=== PATIENT | male | born 2000 | race American Indian/Alaskan Native ===

== ENCOUNTER 2018-06-20 22:36 | Emergency (ER) | payer SELFPAY ==
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
[2018-06-21 01:31] LABS: Alanine Aminotransferase 13 units/L (7-56); Albumin 3.9 g/dL (3.9-5); BUN/Creatinine Ratio 10; Blood Urea Nitrogen 9 mg/dL (9-20); Calcium 9.6 mg/dL (8.4-10.2); Hemolysis Index 18
[2018-06-21 01:32] LABS: Basophils # (Auto) 0.1 K/mm3 (0.0-0.1); Basophils % (Auto) 1.4 % (0.0-1.8); Eosinophils # (Auto) 0.1 K/mm3 (0.0-0.4); Eosinophils % (Auto) 0.8 % (0.0-4.3); Hematocrit 41.5 % (35.5-45.6); Hemoglobin 13.8 gm/dl (11.8-15.2); Lymphocytes # (Auto) 1.2 K/mm3 (1.2-5.4); Lymphocytes % (Auto) 12.9 % (13.4-35.0); Mean Corpuscular HGB Conc 33 % (32-34); Mean Corpuscular Volume 77 fl (84-94); Monocytes # (Auto) 0.6 K/mm3 (0.0-0.8); Monocytes % (Auto) 7.2 % (0.0-7.3); Platelet Count 341 K/mm3 (140-440); Red Blood Count 5.36 M/mm3 (3.65-5.03); Red Cell Distribution Width 17.1 % (13.2-15.2)
[2018-06-21 04:17] LABS: Bilirubin,Urine NEG (Negative); Blood,Urine NEG (Negative); Color,Urine Yellow (Yellow); Mucus,Urine 1+ /HPF; Protein,Urine <15 mg/dL mg/dL (Negative); Urobilinogen,Urine < 2.0 mg/dL (<2.0)
[2018-06-21 04:27] LABS: Amphetamine Screen,Urine PRESUMPTIVE NEGATIVE; Benzodiazepines Screen,Urine PRESUMPTIVE NEGATIVE; Cannabinoid Screen,Urine PRESUMPTIVE NEGATIVE; Cocaine Screen,Urine PRESUMPTIVE NEGATIVE; Methadone Screen,Urine PRESUMPTIVE NEGATIVE; Opiate Screen,Urine PRESUMPTIVE NEGATIVE
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
--- NOTE | 2018-06-22 18:48 | Progress Note ---
Subjective - Reason for Consult Consult date: 06/22/18 Reason for consult: follow up - Chief Complaint Chief complaint: "voices in my ear" They are whisphering in my ear. "I'm not crazy." Pt is a 17yo single male of Monegas[place] heritage. He was seen for psychiatric evaluation in the ER. Pt was brought to ED by his parents for bizarre behavior, auditory hallucinations, violent/aggressive bx, decreased appetite, and poor ADL's. Per ED provider evaluation, his parents reported picking him up from [facility] on Saturday at which time they noticed him acting bizarre. He insists his parents and roommate were whispering to him and that he is "not crazy." He took zyprexa last night and says he slept a little. He began to escalate with agitation when discussing symptoms. - Exam Orientation: time, place, person Affect: flat Mood: fearful Thought content: delusions, paranoia Thought Process: Disorganized Perceptions: auditory, hallucinations Speech: normal rate and pattern Concentration: distractible Motor activity: normal Level of consciousness: alert Memory: Intact Sleep Symptoms: Difficulty Falling Asleep Appetite: decreased Interaction: cooperative Mini mental status exam(if necessary): 24-30 Mental Status Exam - Vital signs Last Vital Signs Temp 98.5 F 06/22/18 14:15 Pulse 77 06/22/18 14:15 Resp 20 06/22/18 14:15 BP 99/61 06/22/18 14:15 Pulse Ox 97 06/22/18 14:15 Assessment and Plan Impression: psychosis unspecified r/o schizophreniform disorder r/o substance induced psychotic disorder UDS neg Recommendation: continue zyprexa 5mg hs for psychosis risks/benefits discussed, risks including eps/nms/metabolic effects/sedation continue 1013 dispo: transfer to inpatient psychiatric facility staffed with Dr. Elvis Buck
--- NOTE | 2018-06-23 12:24 | Progress Note ---
Subjective - Reason for Consult Consult date: 06/23/18 Reason for consult: Psychiatry Follow-up - Chief Complaint Chief complaint: "I am a little better" 17 yo single male of Citizen Of [place] heritage. Today the patient is calm and cooperative during the assessment. He stated that he is feeling "a little better." He denied experiencing AH's in the past. He stated that he got "good sleep" the past 2 days. He could not elaborate about what happened to him prior to his arrival to the ER. He denies SI/HI's and AVH's. He denies any side effects of his medication. Mental Status Exam - Vital signs Last Vital Signs Temp 98.1 F 06/23/18 07:59 Pulse 76 06/23/18 07:59 Resp 18 06/23/18 07:59 BP 100/62 06/23/18 07:59 Pulse Ox 99 06/23/18 07:59 - Exam Narrative exam: MSE: Appearance: calm, cooperative Behavior: regular eye contact Speech: regular rate and tone Mood: "okay" Affect: congruent to mood Thought Process: circumstantial Thought Content: denies SI/HI's and AVH's Motor Activity: sitting up in the bed Cognition: A/O x 3 Insight: variable to fair Judgment: fair Assessment and Plan Impression: Unspecified Psychosis. Today the patient is calm and cooperative during the assessment. The patient's mental status is improving. DDx: Bipolar DO Recommendation/Plan: Reevaluate the patient's 1013 in 24 hours. Continue Zyprexa 5 mg PO HS for psychosis. Discussed possible metabolic side effects of Zyprexa, she verbalized understanding. Dispo: If the patient's 1013 is rescinded in 24 hours, he can follow up with [facility] for outpatient psy services. Will staff with Dr. Anahi Buck
--- NOTE | 2018-06-23 14:57 | Cat Scan Report ---
CT HEAD WITHOUT CONTRAST: HISTORY: Bizarre behavior. TECHNIQUE: Sequential 2.5mm CT images. COMPARISON: none. FINDINGS: Cerebral Parenchyma: Within normal limits. Cerebellum: Within normal limits. Brainstem: Within normal limits. Ventricles: Normal. Sella: Normal. Extra-axial spaces: Normal. Basal Cisterns: Normal. Intracranial Hemorrhage: None. Midline Shift: None. Calvarium: Normal. Sinuses: Normal. Mastoid Air Cells: Normal. Visualized Orbits: Normal. IMPRESSION: Cranial CT scan within normal limits.
--- NOTE | 2018-06-24 10:31 | Progress Note ---
Subjective - Reason for Consult Consult date: 06/24/18 Reason for consult: Psychiatry Follow-up - Chief Complaint Chief complaint: "I believe the whispers"" 17 yo single male of Maur[place] heritage. Today the patient is calm and cooperative during the assessment. He stated that he does not hear whispers today, but believed what he heard may have been real prior to his ER visit. He stated, "The voices and whispers were weird." Throughout the interview, the patient seem preoccupied. He denies SI/HI's and AVH's. He denies any side effects of his medication. Mental Status Exam - Vital signs Last Vital Signs Temp 98.8 F 06/24/18 04:06 Pulse 79 06/24/18 04:06 Resp 18 06/24/18 04:06 BP 106/67 06/24/18 04:06 Pulse Ox 96 06/24/18 04:06 - Exam Narrative exam: MSE: Appearance: calm, cooperative Behavior: regular eye contact Speech: regular rate and tone Mood: somewhat preoccupied Affect: congruent to mood Thought Process: circumstantial Thought Content: denies SI/HI's and AVH's, delusional Motor Activity: sitting up in the bed Cognition: A/O x 3 Insight: variable Judgment: variable to fair Assessment and Plan Impression: Unspecified Psychosis. Today the patient is calm and cooperative during the assessment. The patient's mental status is improving. DDx: Bipolar DO Recommendation/Plan: Continue 1013 and Zyprexa 5 mg PO HS for psychosis. Discussed possible metabolic side effects of Zyprexa, she verbalized understanding. Dispo: The patient was referred to inpatient psy services. Will staff with Dr. Anahi Buck
[2018-06-25 08:42] VITALS: BP 130/86
== END 2018-06-25 09:00 | disposition admitted as inpatient to this hospital (09) ==
LOC: ED 22:36 → EEVIPCON 22:36 → ED 06-25 09:00
DX: F23 Brief psychotic disorder (principal); F17.200 Nicotine dependence, unspecified, uncomplicated; F12.10 Cannabis abuse, uncomplicated
CPT/HCPCS: 36415; 70450; 80053; 80307; 81001; 84443; 85025; 99285; G0480; 80320

== ENCOUNTER 2020-01-14 16:24 | Emergency (ER) | payer OTHER ==
[2020-01-14 16:31] VITALS: BP 125/73
--- NOTE | 2020-01-14 16:33 | Event Note ---
ED Screening Note Date of service: 01/14/20 Time: 16:32 ED Screening Note: Patient sent here from his health specialist with copies of an MRI yesterday possible neoplasm and a CT that states possible osteomyelitis in the lumbar spine student education specialist recommends infectious disease and neurosurgery consult Patient denies any prior medical history This initial assessment/diagnostic orders/clinical plan/treatment(s) is/are subject to change based on patients health status, clinical progression and re- assessment by fellow clinical providers in the ED. Further treatment and workup at subsequent clinical providers discretion. Patient/guardian urged not to elope from the ED as their condition may be serious if not clinically assessed and managed. Initial orders include: Labs
[2020-01-14 17:28] LABS: Basophils # (Auto) 0.1 K/mm3 (0.0-0.1); Basophils % (Auto) 1.1 % (0.0-1.8); Eosinophils # (Auto) 0.2 K/mm3 (0.0-0.4); Eosinophils % (Auto) 2.5 % (0.0-4.3); Hemoglobin 12.6 gm/dl (11.8-15.2); Lymphocytes # (Auto) 1.3 K/mm3 (1.2-5.4); Lymphocytes % (Auto) 19.9 % (13.4-35.0); Mean Corpuscular HGB Conc 32 % (32-34); Mean Corpuscular Volume 74 fl (84-94); Monocytes # (Auto) 0.4 K/mm3 (0.0-0.8); Monocytes % (Auto) 5.8 % (0.0-7.3); Platelet Count 435 K/mm3 (140-440); Red Blood Count 5.27 M/mm3 (3.65-5.03); Red Cell Distribution Width 18.9 % (13.2-15.2)
[2020-01-14 17:36] LABS: Alanine Aminotransferase 20 units/L (7-56); Albumin 3.9 g/dL (3.9-5); BUN/Creatinine Ratio 11; Blood Urea Nitrogen 9 mg/dL (9-20); Calcium 9.8 mg/dL (8.4-10.2); Hemolysis Index 7
--- NOTE | 2020-01-14 21:06 | Emergency Department Report ---
ED Back Pain/Injury HPI - General Chief Complaint: Back Pain/Injury Stated Complaint: LOW BACK PAIN Time Seen by Provider: 01/14/20 16:31 Source: patient Limitations: No Limitations - History of Present Illness Initial Comments: Patient is a 19-year-old gentleman who has no significant past medical history who is presenting with need for evaluation of lower back pain. The end of November 2019 the patient went to [facility] orthopedics and had an MRI performed. He then had approximately 3 weeks later [address] a [address] of the lumbar spine done as well. Patient is been having low back pain for the past 3 to 4 months. States he has a mild lower leg swelling off and on as well but denies any trauma or any bowel incontinence or urinary retention. States he has had no fevers or chills. The CT showed possibility of osteomyelitis of L3. MRI showed indeterminate neoplastic lesion of the anterior L3 vertebral body extending over a 2.6 cm ovoid long axis cephalocaudal dimension on the sagittal T2 image. There is ill- defined swelling around this area as well. The spinal cord had normal diameter and caliber. There were no other abnormalities found. Patient was given results of these tests today and was told to come immediately to the emergency department. - Related Data Previous Rx's Medication Instructions Recorded Last Taken Type methOCARBAMOL [Robaxin TAB] 500 mg PO Q6H PRN #14 tablet 01/14/20 Unknown Rx predniSONE [Deltasone] 20 mg PO QDAY #5 tab 01/14/20 Unknown Rx traMADoL [Ultram] 50 mg PO Q6HR PRN #12 tablet 01/14/20 Unknown Rx Allergies Allergy/AdvReac Type Severity Reaction Status Date / Time No Known Allergies Allergy Verified 06/21/18 10:03 ED Review of Systems ROS: Stated complaint: LOW BACK PAIN Other details as noted in HPI Comment: All other systems reviewed and negative ED Past Medical Hx - Past Medical History Previous Medical History?: Yes Hx Psychiatric Treatment: No Additional medical history: anemia - Surgical History Past Surgical History?: No - Social History Substance Use Type: Marijuana - Medications Home Medications: Home Medications Medication Instructions Recorded Confirmed Last Taken Type methOCARBAMOL [Robaxin TAB] 500 mg PO Q6H PRN #14 tablet 01/14/20 Unknown Rx predniSONE [Deltasone] 20 mg PO QDAY #5 tab 01/14/20 Unknown Rx traMADoL [Ultram] 50 mg PO Q6HR PRN #12 tablet 01/14/20 Unknown Rx ED Physical Exam - General Limitations: No Limitations General appearance: alert, in no apparent distress - Head Head exam: Present: atraumatic, normocephalic - Eye Eye exam: Present: normal appearance - ENT ENT exam: Present: mucous membranes moist - Neck Neck exam: Present: normal inspection - Respiratory Respiratory exam: Present: normal lung sounds bilaterally. Absent: respiratory distress, wheezes, rales, rhonchi - Cardiovascular Cardiovascular Exam: Present: regular rate, normal rhythm, normal heart sounds. Absent: systolic murmur, diastolic murmur, rubs, gallop - GI/Abdominal GI/Abdominal exam: Present: soft, normal bowel sounds. Absent: distended, tenderness, guarding, rebound - Rectal Rectal exam: Present: deferred - Extremities Exam Extremities exam: Present: normal inspection - Back Exam Back exam: Present: normal inspection, full ROM. Absent: tenderness - Neurological Exam Neurological exam: Present: alert, oriented X3 - Psychiatric Psychiatric exam: Present: normal affect, normal mood - Skin Skin exam: Present: warm, dry, intact, normal color. Absent: rash ED Course Vital Signs 01/14/20 16:26 Temperature 98.8 F Pulse Rate 105 H Respiratory 16 Rate Blood Pressure 125/73 [Right] O2 Sat by Pulse 98 Oximetry ED Medical Decision Making - Lab Data Result diagrams: 01/14/20 17:03 01/14/20 17:03 - Medical Decision Making Regarding the CT showing a possible osteomyelitis do believe that the MRI likely is showing the exact same lesion but because the MRI is showing more details this is more likely some type of neoplastic or tumorWas at medical alcohol consultIs unknown whether this is benign or malignant at this time. Do not believe that the patient is an emergent need of infectious disease consult from emergency department. He is afebrile and white count was normal. Patient will be given follow-up with [facility] for further management of his lower back pain. Patient will be given medication for symptomatic relief as he is not on anything for pain will be discharged home. Critical care attestation.: If time is entered above; I have spent that time in minutes in the direct care of this critically ill patient, excluding procedure time. ED Disposition Clinical Impression: Lumbar back pain, Neoplasm of lumbar vertebra Disposition: - TO HOME OR SELFCARE Is pt being admited?: No Does the pt Need Aspirin: No Condition: Stable Referrals: KENNEDI YANG II, MD [Staff Physician] - 3-5 Days Time of Disposition: 21:08
== END 2020-01-14 21:40 | disposition home or self-care (01) ==
LOC: ED 16:24
DX: M54.5 Low back pain (principal); D49.2 Neoplasm of unspecified behavior of bone, soft tissue, and skin; F12.10 Cannabis abuse, uncomplicated
CPT/HCPCS: 36415; 80053; 82140; 85025; 87040; 99283

== ENCOUNTER 2020-03-10 11:56 | Outpatient (CLI) | payer OTHER ==
--- NOTE | 2020-03-10 13:22 | XRay Report ---
BILATERAL HIPS 4 VIEWS INDICATION / CLINICAL INFORMATION: HIP PAIN. COMPARISON: None available. FINDINGS: Moderate degenerative change in the right hip joint with mild degenerative change on the left. No oth er significant skeletal abnormality Signer Name: Gonzalo Rico MD FACR Signed: 03/10/2020 1:18 PM Workstation Name: [id number]
== END 2020-03-10 11:57 | disposition home or self-care (01) ==
LOC: XRAY 11:56
PROVIDERS: ATTEND Orthopaedic Surgery
DX: M16.0 Bilateral primary osteoarthritis of hip (principal)
CPT/HCPCS: 73521

== ENCOUNTER 2020-04-17 22:19 | Inpatient (IN) | payer OTHER ==
[2020-04-17 23:39] LABS: Basophils # (Auto) 0.1 K/mm3 (0.0-0.1); Basophils % (Auto) 0.7 % (0.0-1.8); Eosinophils # (Auto) 0.3 K/mm3 (0.0-0.4); Hematocrit 37.7 % (35.5-45.6); Hemoglobin 12.3 gm/dl (11.8-15.2); Lymphocytes % (Auto) 13.1 % (13.4-35.0); Mean Corpuscular HGB Conc 33 % (32-34); Mean Corpuscular Volume 72 fl (84-94); Monocytes # (Auto) 0.6 K/mm3 (0.0-0.8); Monocytes % (Auto) 3.8 % (0.0-7.3); Platelet Count 456 K/mm3 (140-440); Red Blood Count 5.24 M/mm3 (3.65-5.03); Red Cell Distribution Width 18.5 % (13.2-15.2)
[2020-04-17 23:56] LABS: Alanine Aminotransferase 24 units/L (7-56); Albumin 4.5 g/dL (3.9-5); Blood Urea Nitrogen 9 mg/dL (9-20); Calcium 9.8 mg/dL (8.4-10.2); Hemolysis Index 0
[2020-04-18 00:09] LABS: BUN/Creatinine Ratio 13
[2020-04-18] MEDS ORDERED: ONDANSETRON 4 MG ODT TAB PO ONE (00:44)
--- NOTE | 2020-04-18 00:48 | Event Note ---
ED Screening Note Date of service: 04/18/20 Time: 00:44 ED Screening Note: Pt c/o mid/upper abdominal pain and vomiting x yesterday denies alcohol or marijuana This initial assessment/diagnostic orders/clinical plan/treatment(s) is/are subject to change based on patients health status, clinical progression and re- assessment by fellow clinical providers in the ED. Further treatment and workup at subsequent clinical providers discretion. Patient/guardian urged not to elope from the ED as their condition may be serious if not clinically assessed and managed. Initial orders include: labs CT
[2020-04-18 01:52] LABS: Bilirubin,Urine NEG (Negative); Blood,Urine NEG (Negative); Color,Urine Yellow (Yellow); Mucus,Urine FEW /HPF; RBC,Urine < 1.0 /HPF (0.0-6.0); Urobilinogen,Urine < 2.0 mg/dL (<2.0)
[2020-04-18] MEDS ORDERED: METOCLOPRAMIDE 10 MG/2 ML INJ IV ONE (02:17)
[2020-04-18] MEDS ORDERED: MORPHINE 4 MG/1 ML INJ IV ONE ×2 (02:17→05:27)
[2020-04-18] MEDS ORDERED: diphenhydrAMINE 50 MG/ML VIAL IV ONE (02:17)
[2020-04-18] MEDS ORDERED: FAMOTIDINE 20 MG/2 ML INJ IV ONE (02:17)
[2020-04-18] MEDS ORDERED: SODIUM CHLORIDE 0.9% 1000 ML 1,000 ML IV ONE ×2 (02:17→05:42)
--- NOTE | 2020-04-18 04:30 | Cat Scan Report ---
CT abdomen pelvis w con INDICATION: acute mid/upper abdominal pain and vomiting. TECHNIQUE: All CT scans at this location are performed using the following dose modulation technique: Automated exposure control. CONTRAST: Omnipaque 300, 100 cc IV injection. COMPARISON: None available. CT ABDOMEN: Chronic appearing inflammatory change right middle lobe. CT ABDOMEN: The parenchymal organs are unremarkable in appearance. Negative for abdominal mass or francia nopathy. Moderate distended small bowel is seen at the mid abdomen. The mid/distal small bowel is dec ompressed. Erosion is seen at the anterior aspect of the L3 vertebral body greater on the left. A sequestered betty ne fragment measures 1.4 cm. There is an adjacent fluid collection at the left psoas muscle measuring 4.2 x 2[address] PELVIS: Negative for pelvic mass, fluid collection or inflammation. IMPRESSION: 1. Mid small bowel obstruction. 2. Suspect chronic osteomyelitis at the L3 vertebral body with adjacent left psoas abscess. Signer Name: Aly Briones MD Signed: 04/18/2020 4:26 AM Workstation Name: [id number]
--- NOTE | 2020-04-18 05:29 | Emergency Department Report ---
<GAYLA FOSTER - Last Filed: 04/18/20 05:25> ED Abdominal Pain HPI - General Chief Complaint: Abdominal Pain Stated Complaint: EMESIS/ABD PAIN Time Seen by Provider: 04/18/20 02:17 Source: patient Mode of arrival: Ambulatory Limitations: No Limitations - History of Present Illness Initial Comments: 19-year-old -French male patient presents with complaints of sudden onset of abdominal pain and vomiting starting yesterday. Patient denies alcohol and marijuana. He also denies any fever/chills/sweats, hematemesis/coffee- ground emesis, diarrhea, melena/hematochezia, urinary symptoms, chest pain, or shortness of breath. Patient rates his current pain as a 9/10 in severity. No history of abdominal surgeries per patient. Vomiting occurs with oral intake only per patient. Severity scale (0 -10): 10 - Related Data Previous Rx's Medication Instructions Recorded Last Taken Type methOCARBAMOL [Robaxin TAB] 500 mg PO Q6H PRN #14 tablet 01/14/20 Unknown Rx predniSONE [Deltasone] 20 mg PO QDAY #5 tab 01/14/20 Unknown Rx traMADoL [Ultram] 50 mg PO Q6HR PRN #12 tablet 01/14/20 Unknown Rx Allergies Allergy/AdvReac Type Severity Reaction Status Date / Time No Known Allergies Allergy Verified 06/21/18 10:03 ED Review of Systems Constitutional: denies: chills, fever, malaise Respiratory: denies: cough, shortness of breath Cardiovascular: denies: chest pain Gastrointestinal: abdominal pain, nausea, vomiting. denies: diarrhea, constipation, hematemesis, melena, hematochezia Genitourinary: denies: dysuria, frequency, hematuria, discharge Musculoskeletal: denies: back pain Skin: denies: rash, change in color Neurological: denies: headache Hematological/Lymphatic: denies: easy bleeding ED Past Medical Hx - Past Medical History Previous Medical History?: Yes Hx Psychiatric Treatment: No Additional medical history: anemia - Surgical History Past Surgical History?: Yes - Social History Smoking Status: Never Smoker Substance Use Type: None - Medications Home Medications: Home Medications Medication Instructions Recorded Confirmed Last Taken Type methOCARBAMOL [Robaxin TAB] 500 mg PO Q6H PRN #14 tablet 01/14/20 Unknown Rx predniSONE [Deltasone] 20 mg PO QDAY #5 tab 01/14/20 Unknown Rx traMADoL [Ultram] 50 mg PO Q6HR PRN #12 tablet 01/14/20 Unknown Rx ED Physical Exam - General Limitations: No Limitations General appearance: alert, other (Actively vomiting) - Head Head exam: Present: atraumatic, normocephalic - Eye Eye exam: Present: normal appearance. Absent: scleral icterus - ENT ENT exam: Present: normal exam - Neck Neck exam: Present: normal inspection - Respiratory Respiratory exam: Present: normal lung sounds bilaterally. Absent: respiratory distress - Cardiovascular Cardiovascular Exam: Present: regular rate, normal rhythm - GI/Abdominal GI/Abdominal exam: Present: soft, distended (Mild), tenderness (Periumbilical and epigastric), hyperactive bowel sounds. Absent: rigid, organomegaly - Extremities Exam Extremities exam: Present: normal inspection - Back Exam Back exam: Present: full ROM - Neurological Exam Neurological exam: Present: alert, oriented X3 - Psychiatric Psychiatric exam: Present: normal affect, normal mood - Skin Skin exam: Present: warm, dry, intact, normal color. Absent: rash, diaphoretic, erythema, ecchymosis ED Medical Decision Making - Lab Data Result diagrams: 04/17/20 23:08 04/17/20 23:08 Lab Results 04/17/20 04/17/20 04/18/20 Range/Units 23:08 23:08 00:40 WBC 15.3 H (4.5-11.0) K/mm3 RBC 5.24 H (3.65-5.03) M/mm3 Hgb 12.3 (11.8-15.2) gm/dl Hct 37.7 (35.5-45.6) % MCV 72 L (84-94) fl MCH 24 L (28-32) pg MCHC 33 (32-34) % RDW 18.5 H (13.2-15.2) % Plt Count 456 H (140-440) K/mm3 Lymph % (Auto) 13.1 L (13.4-35.0) % [place] % (Auto) 3.8 (0.0-7.3) % Eos % (Auto) 2.0 (0.0-4.3) % Baso % (Auto) 0.7 (0.0-1.8) % Lymph # (Auto) 2.0 (1.2-5.4) K/mm3 [place] # (Auto) 0.6 (0.0-0.8) K/mm3 Eos # (Auto) 0.3 (0.0-0.4) K/mm3 Baso # (Auto) 0.1 (0.0-0.1) K/mm3 Seg Neutrophils % 80.4 H (40.0-70.0) % Seg Neutrophils # 12.3 H (1.8-7.7) K/mm3 Sodium 139 (137-145) mmol/L Potassium 4.2 (3.6-5.0) mmol/L Chloride 96.7 L (98-107) mmol/L Carbon Dioxide 32 H (22-30) mmol/L Anion Gap 15 mmol/L BUN 9 (9-20) mg/dL Creatinine 0.7 L (0.8-1.3) mg/dL Estimated GFR > 60 ml/min BUN/Creatinine Ratio 13 % Glucose 166 H (75-100) mg/dL Calcium 9.8 (8.4-10.2) mg/dL Total Bilirubin 0.20 (0.1-1.2) mg/dL AST 24 (5-40) units/L ALT 24 (7-56) units/L Alkaline Phosphatase 90 (35-129) units/L Total Protein 8.1 (6.3-8.2) g/dL Albumin 4.5 (3.9-5) g/dL Albumin/Globulin Ratio 1.3 % Lipase 9 L (13-60) units/L Urine Color Yellow (Yellow) Urine Turbidity Slightly-cloudy (Clear) Urine pH 5.0 (5.0-7.0) Ur Specific [place] 1.017 (1.003-1.030) Urine Protein 30 mg/dl (Negative) mg/dL Urine Glucose (UA) Neg (Negative) mg/dL Urine Ketones 20 (Negative) mg/dL Urine Blood Neg (Negative) Urine Nitrite Neg (Negative) Urine Bilirubin Neg (Negative) Urine Urobilinogen < 2.0 (<2.0) mg/dL Ur Leukocyte Esterase Neg (Negative) Urine WBC (Auto) 2.0 (0.0-6.0) /HPF Urine RBC (Auto) < 1.0 (0.0-6.0) /HPF U Epithel Cells (Auto) < 1.0 (0-13.0) /HPF Urine Mucus Few /HPF - Radiology Data Radiology results: report reviewed CT ABDOMEN: Chronic appearing inflammatory change right middle lobe. CT ABDOMEN: The parenchymal organs are unremarkable in appearance. Negative for abdominal mass or adenopathy. Moderate distended small bowel is seen at the mid abdomen. The mid/distal small bowel is decompressed. Erosion is seen at the anterior aspect of the L3 vertebral body greater on the left. A sequestered bone fragment measures 1.4 cm. There is an adjacent fluid collection at the left psoas muscle measuring 4.2 x 2[address] PELVIS: Negative for pelvic mass, fluid collection or inflammation. IMPRESSION: 1. Mid small bowel obstruction. 2. Suspect chronic osteomyelitis at the L3 vertebral body with adjacent left psoas abscess. - Medical Decision Making 19-year-old -French male patient presents with complaints of sudden onset of abdominal pain and vomiting starting yesterday. Patient denies alcohol and marijuana. He also denies any fever/chills/sweats, hematemesis/coffee- ground emesis, diarrhea, melena/hematochezia, urinary symptoms, chest pain, or shortness of breath. Patient rates his current pain as a 9/10 in severity. No history of abdominal surgeries per patient. Vomiting occurs with oral intake only per patient. CBC shows white count of 15.3. Anion gap 15. No acute changes noted on CMP. Lipase is normal. Abdomen with contrast shows the followin. Mid small bowel obstruction. 2. Suspect chronic osteomyelitis at the L3 vertebral body with adjacent left psoas abscess. Upon further questioning, patient states since October 2019, he has had back pain since being in an accident. He reports he was seen by his PCP who referred him to infectious disease last week who then referred him to [place] for a biopsy on last week. He denies any back pain today. No prior medical history per patient. Discussed patient with Dr. Cazares-patient to be admitted to general surgery, Dr. Law. Currently awaiting records from [place]. Patient is currently nontoxic-appearing and his vitals are stable. ED Disposition Clinical Impression: Small bowel obstruction, Psoas abscess, left, Chronic osteomyelitis Disposition: OP ADMIT IP TO THIS HOSP Condition: Stable <CHRISTIE CAZARES - Last Filed: 04/18/20 05:38> ED Review of Systems ROS: Stated complaint: EMESIS/ABD PAIN Other details as noted in HPI ED Course Vital Signs 04/17/20 23:07 Temperature 98.8 F Pulse Rate 102 H Respiratory 16 Rate Blood Pressure 137/79 O2 Sat by Pulse 99 Oximetry ED Medical Decision Making - Lab Data Result diagrams: 04/17/20 23:08 04/17/20 23:08 - Medical Decision Making Patient will be admitted to the hospital service with consultation by Dr. Lazcano from presentation appears that psoas abscess has been evaluated in the outpatient setting through [facility]. I spoke with transfer nurse at [facility] and [facility] in order to obtain outside records. I also spoke with medical records sales representative [employer] in order to obtain medical records. Patient will be treated with NGT. Critical care attestation.: If time is entered above; I have spent that time in minutes in the direct care of this critically ill patient, excluding procedure time. ED Disposition Is pt being admited?: Yes Does the pt Need Aspirin: No
[2020-04-18] MEDS ORDERED: PIPERACIL/TAZOBACTA 4.5/NS 100 4.5 GM/100 ML VIAL IV ONE (05:55)
[2020-04-18] MEDS ORDERED: VANCOMYCIN/NS 1 GM/250 ML 1 GM/250 ML BAG IV ONE (06:00)
[2020-04-18] MEDS ORDERED: MORPHINE 4 MG/1 ML INJ IV PRN (07:33)
--- NOTE | 2020-04-18 07:41 | History and Physical Report ---
History of Present Illness Date of examination: 04/18/20 Date of admission: 04/18/20 05:38 Chief complaint: Abdominal pain History of present illness: Patient is 19-year-old -Malagasy male patient presents with complaints of sudden onset of abdominal pain and vomiting starting yesterday. While he denies any past medical history he did report that he had some type of biopsy done yesterday in outpatient setting for an infection on his back. From information obtained from the ER this appears to have been done at [facility]. Patient denies alcohol and marijuana. He also denies any fever/chills/sweats, hematemesis/coffee-ground emesis, diarrhea, melena/hematochezia, urinary symptoms, chest pain, or shortness of breath. Vick hitchcock rates his current pain as a 9/10 in severity. No history of abdominal surgeries per patient. Vomiting occurs with oral intake only per patient. On arrival to the hospital he was noted on imaging study to have chronic osteomyelitis of the L3 vertebral body adjacent to the left psoas abscess and also mid small bowel obstruction for which she has been admitted. At the time of my evaluation also the patient has an NG tube already in place reports some improvement in the abdominal pain at this time. Past History Past Medical History: other (Abscess of the back) Past Surgical History: Other (Biopsy of abscess) Social history: no significant social history Family history: diabetes (Mother) Medications and Allergies Allergies Allergy/AdvReac Type Severity Reaction Status Date / Time No Known Allergies Allergy Verified 06/21/18 10:03 Home Medications Medication Instructions Recorded Confirmed Last Taken Type methOCARBAMOL [Robaxin TAB] 500 mg PO Q6H PRN #14 tablet 01/14/20 Unknown Rx predniSONE [Deltasone] 20 mg PO QDAY #5 tab 01/14/20 Unknown Rx traMADoL [Ultram] 50 mg PO Q6HR PRN #12 tablet 01/14/20 Unknown Rx Review of Systems All systems: negative Constitutional: no weight loss, no weight gain, no fever, no chills, no sweats Ears, nose, mouth and throat: no tinnitis, no nasal discharge, no sinus pressure, no mouth pain Cardiovascular: no orthopnea, no edema, no lightheadedness, no paroxysmal nocturnal dyspnea Gastrointestinal: abdominal pain, nausea, vomiting, no diarrhea, no constipation, no change in bowel habits, no hematemesis, no coffee ground emesis, no melena, no loss of appetite, no early satiety Genitourinary Male: no hematuria, no discharge, no urinary hesitancy Musculoskeletal: no neck pain, no low back pain, no muscle weakness, no muscle cramps, no atrophy, no limitation of motion, no loss of height, no prior amputations Integumentary: no rash, no lesions, no darkening of skin, no dryness, no brittle nails, no onychomycosis Neurological: no paralysis, no weakness, no seizures, no syncope, no tic, no change in mentation, no double vision Psychiatric: no memory loss, no hypersomnia, no suicidal ideation, no disorientation, no difficulties concentrating, no irritability Endocrine: no excessive thirst, no polydipsia, no excessive sweating, no thyroid mass, no fatigue Hematologic/Lymphatic: no easy bruising Allergic/Immunologic: no urticaria, no wheezing, no anaphylaxis Exam - Physical Exam Narrative exam: VITAL SIGNS: Reviewed. GENERAL: The patient appears normally developed, NG tube in place. Vital signs as documented. HEAD: No signs of head trauma. EYES: Pupils are equal. Extraocular motions intact. EARS: Hearing grossly intact. MOUTH: Oropharynx is normal. NECK: No adenopathy, no JVD. CHEST: Chest with clear breath sounds bilaterally. No wheezes, rales, or rhonchi. CARDIAC: Regular rate and rhythm. S1 and S2, without murmurs, gallops, or rubs. VASCULAR: No Edema. Peripheral pulses normal and equal in all extremities. ABDOMEN: Soft, nondistended nontender . No rebound or guarding, and no masses palpated. Bowel Sounds normal. MUSCULOSKELETAL: Good range of motion of all major joints. Extremities without clubbing, cyanosis or edema. NEUROLOGIC EXAM: Alert and oriented x 3 No focal sensory or strength deficits. Speech normal. Follows commands. PSYCHIATRIC: Mood normal. SKIN: detail exam as documented in skin assessment - Constitutional Vitals: Temp Pulse Resp BP Pulse Ox 98.8 F 110 H 20 127/80 98 04/17/20 23:07 04/18/20 06:15 04/18/20 06:15 04/18/20 06:15 04/18/20 06:15 Results - Labs CBC & Chem 7: 04/17/20 23:08 04/17/20 23:08 Labs: Laboratory Last Values WBC 15.3 K/mm3 (4.5-11.0) H 04/17/20 23:08 RBC 5.24 M/mm3 (3.65-5.03) H 04/17/20 23:08 Hgb 12.3 gm/dl (11.8-15.2) 04/17/20 23:08 Hct 37.7 % (35.5-45.6) 04/17/20 23:08 MCV 72 fl (84-94) L 04/17/20 23:08 MCH 24 pg (28-32) L 04/17/20 23:08 MCHC 33 % (32-34) 04/17/20 23:08 RDW 18.5 % (13.2-15.2) H 04/17/20 23:08 Plt Count 456 K/mm3 (140-440) H 04/17/20 23:08 Lymph % (Auto) 13.1 % (13.4-35.0) L 04/17/20 23:08 [place] % (Auto) 3.8 % (0.0-7.3) 04/17/20 23:08 Eos % (Auto) 2.0 % (0.0-4.3) 04/17/20 23:08 Baso % (Auto) 0.7 % (0.0-1.8) 04/17/20 23:08 Lymph # (Auto) 2.0 K/mm3 (1.2-5.4) 04/17/20 23:08 [place] # (Auto) 0.6 K/mm3 (0.0-0.8) 04/17/20 23:08 Eos # (Auto) 0.3 K/mm3 (0.0-0.4) 04/17/20 23:08 Baso # (Auto) 0.1 K/mm3 (0.0-0.1) 04/17/20 23:08 Seg Neutrophils % 80.4 % (40.0-70.0) H 04/17/20 23:08 Seg Neutrophils # 12.3 K/mm3 (1.8-7.7) H 04/17/20 23:08 Sodium 139 mmol/L (137-145) 04/17/20 23:08 Potassium 4.2 mmol/L (3.6-5.0) 04/17/20 23:08 Chloride 96.7 mmol/L (98-107) L 04/17/20 23:08 Carbon Dioxide 32 mmol/L (22-30) H 04/17/20 23:08 Anion Gap 15 mmol/L 04/17/20 23:08 BUN 9 mg/dL (9-20) 04/17/20 23:08 Creatinine 0.7 mg/dL (0.8-1.3) L 04/17/20 23:08 Estimated GFR > 60 ml/min 04/17/20 23:08 BUN/Creatinine Ratio 13 % 04/17/20 23:08 Glucose 166 mg/dL (75-100) H 04/17/20 23:08 Lactic Acid 2.00 mmol/L (0.7-2.0) 04/18/20 05:40 Calcium 9.8 mg/dL (8.4-10.2) 04/17/20 23:08 Total Bilirubin 0.20 mg/dL (0.1-1.2) 04/17/20 23:08 AST 24 units/L (5-40) 04/17/20 23:08 ALT 24 units/L (7-56) 04/17/20 23:08 Alkaline Phosphatase 90 units/L (35-129) 04/17/20 23:08 Total Protein 8.1 g/dL (6.3-8.2) 04/17/20 23:08 Albumin 4.5 g/dL (3.9-5) 04/17/20 23:08 Albumin/Globulin Ratio 1.3 % 04/17/20 23:08 Lipase 9 units/L (13-60) L 04/17/20 23:08 Urine Color Yellow (Yellow) 04/18/20 00:40 Urine Turbidity Slightly-cloudy (Clear) 04/18/20 00:40 Urine pH 5.0 (5.0-7.0) 04/18/20 00:40 Ur Specific [place] 1.017 (1.003-1.030) 04/18/20 00:40 Urine Protein 30 mg/dl mg/dL (Negative) 04/18/20 00:40 Urine Glucose (UA) Neg mg/dL (Negative) 04/18/20 00:40 Urine Ketones 20 mg/dL (Negative) 04/18/20 00:40 Urine Blood Neg (Negative) 04/18/20 00:40 Urine Nitrite Neg (Negative) 04/18/20 00:40 Urine Bilirubin Neg (Negative) 04/18/20 00:40 Urine Urobilinogen < 2.0 mg/dL (<2.0) 04/18/20 00:40 Ur Leukocyte Esterase Neg (Negative) 04/18/20 00:40 Urine WBC (Auto) 2.0 /HPF (0.0-6.0) 04/18/20 00:40 Urine RBC (Auto) < 1.0 /HPF (0.0-6.0) 04/18/20 00:40 U Epithel Cells (Auto) < 1.0 /HPF (0-13.0) 04/18/20 00:40 Urine Mucus Few /HPF 04/18/20 00:40 Assessment and Plan Assessment and plan: Patient is 19-year-old -Malagasy male patient presents with complaints of sudden onset of abdominal pain and vomiting starting yesterday. While he denies any past medical history he did report that he had some type of biopsy done yesterday in outpatient setting for an infection on his back. From information obtained from the ER this appears to have been done at [facility]. Patient denies alcohol and marijuana. He also denies any fever/chills/sweats, hematemesis/coffee-ground emesis, diarrhea, melena/hematochezia, urinary symptoms, chest pain, or shortness of breath. Patient rates his current pain as a 9/10 in severity. No history of abdominal surgeries per patient. Vomiting occurs with oral intake only per patient. On arrival to the hospital he was noted on imaging study to have chronic osteomyelitis of the L3 vertebral body adjacent to the left psoas abscess and also mid small bowel obstruction for which she has been admitted. At the time of my evaluation also the patient has an NG tube already in place reports some improvement in the abdominal pain at this time. PER ED information: Upon further questioning, patient states since October 2019, he has had back pain since being in an accident. He reports he was seen by his PCP who referred him to infectious disease last week who then referred him to [place] for a biopsy on last week. He denies any back pain today. No prior medical history per patient. CBC shows white count of 15.3. Anion gap 15. No acute changes noted on CMP. Lipase is normal. CT ABDOMEN: Chronic appearing inflammatory change right middle lobe. CT ABDOMEN: The parenchymal organs are unremarkable in appearance. Negative for abdominal mass or adenopathy. Moderate distended small bowel is seen at the mid abdomen. The mid/distal small bowel is decompressed. Erosion is seen at the anterior aspect of the L3 vertebral body greater on the left. A sequestered bone fragment measures 1.4 cm. There is an adjacent fluid collection at the left psoas muscle measuring 4.2 x 2.[address] PELVIS: Negative for pelvic mass, fluid collection or inflammation. IMPRESSION: 1. Mid small bowel obstruction. 2. Suspect chronic osteomyelitis at the L3 vertebral body with adjacent left psoas abscess. A/P Small bowel obstruction, Psoas abscess, left, Chronic osteomyelitis of L3 Sepsis Secondary to abscess Plan Admit to inpatient for further management SBO management with NGT ID consult and continue abx Judicious use of opioids. ED discussed with Dr. Lazcano from presentation appears that Psoas abscess has been evaluated in the outpatient setting through [facility]. Awaiting records [facility] and [facility] in order to obtain outside records. DVT/GI prophy Advance Directives: Yes Plan of care discussed with patient/family: Yes
[2020-04-18] MEDS ORDERED: ALBUTEROL 2.5 MG/3 ML NEBU IH PRN (08:00)
[2020-04-18] MEDS ORDERED: NALOXONE 0.4 MG/1 ML INJ IV PRN (08:00)
[2020-04-18] MEDS ORDERED: ONDANSETRON 4 MG/2 ML INJ IV PRN (08:00)
[2020-04-18] MEDS ORDERED: DEXTROSE 50% IN WATER (25GM) 50 ML SYRINGE IV PRN (08:00)
--- NOTE | 2020-04-18 09:48 | XRay Report ---
ABDOMEN 1 VIEW(S) INDICATION / CLINICAL INFORMATION: Small bowel obstruction. COMPARISON: CT earlier today. FINDINGS: TUBES / LINES: Gastric tube tip and side-port are in the stomach. BOWEL GAS PATTERN: Diffuse small bowel dilatation is noted. Stomach is also dilated. FREE AIR / EXTRALUMINAL GAS: None seen. ADDITIONAL FINDINGS: No significant additional findings. IMPRESSION: 1. Gastric tube in expected position. 2. Small bowel obstruction, as seen on the CT from earlier today. Signer Name: Joey Middleton MD Signed: 04/18/2020 9:43 AM Workstation Name: [id number]
[2020-04-18 10:09] LABS: Chol/HDL Ratio 1.85 %
--- NOTE | 2020-04-18 12:52 | Consultation ---
History of Present Illness Consult date: 04/18/20 Reason for consult: abdominal pain Chief complaint: Abdominal pain - History of present illness History of present illness: 19-year-old male who presented to the emergency room with complaints of acute on set abdominal pain and nausea. Patient cannot characterize his pain or localize it. He states he has never had pain like this before. He states today the pain is slightly improved. He is hungry and wants to eat. He denies nausea or vomiting. An NG tube was placed in the emergency room for CT scan findings of a small bowel obstruction. Surgery is consulted for evaluation. Last bowel movement was 2 days ago. He denies flatus. Of note, the patient is being treated by [place] as an outpatient for vertebral osteomyelitis which was also seen on the CT scan. He apparently underwent a bone biopsy last , the results of which are still pending. He was also referred to infectious disease but states he was not started on antibiotics as they were waiting for results of the biopsy first. He denies any fevers or chills, chest pain, shortness of breath. He denies back pain. Past History Past Medical History: other (Psoas abscess, vertebral osteo-) Past Surgical History: Other (Lumbar vertebral bone biopsy) Social history: no significant social history Family history: diabetes (Mother) Medications and Allergies Allergies Allergy/AdvReac Type Severity Reaction Status Date / Time No Known Allergies Allergy Verified 06/21/18 10:03 Home Medications Medication Instructions Recorded Confirmed Last Taken Type methOCARBAMOL [Robaxin TAB] 500 mg PO Q6H PRN #14 tablet 01/14/20 Unknown Rx predniSONE [Deltasone] 20 mg PO QDAY #5 tab 01/14/20 Unknown Rx traMADoL [Ultram] 50 mg PO Q6HR PRN #12 tablet 01/14/20 Unknown Rx Active Meds: Active Medications Acetaminophen (Acetaminophen 325 Mg Tab) 650 mg PO Q4H PRN PRN Reason: Pain MILD(1-3)/Fever >100.5/MANZANARES Albuterol (Albuterol 2.5 Mg/3 Ml Nebu) 2.5 mg IH Q4HRT PRN PRN Reason: Shortness Of Breath Bisacodyl (Bisacodyl 10 Mg Rect Supp) 10 mg HI QDAY ALFONSO Dextrose (Dextrose 50% In Water (25gm) 50 Ml Syringe) 50 ml IV Q30MIN PRN; Protocol PRN Reason: Hypoglycemia Morphine Sulfate (Morphine 2 Mg/1 Ml Inj) 2 mg IV Q4H PRN PRN Reason: Pain , Severe (7-10) Naloxone HCl (Naloxone 0.4 Mg/1 Ml Inj) 0.1 mg IV Q2MIN PRN PRN Reason: Res Rate </= 8 or 02 SAT < 92% Ondansetron HCl (Ondansetron 4 Mg/2 Ml Inj) 4 mg IV Q4H PRN PRN Reason: Nausea And Vomiting Sodium Chloride (Sodium Chloride 0.9% 10 Ml Flush Syringe) 10 ml IV BID ALFONSO Sodium Chloride (Sodium Chloride 0.9% 10 Ml Flush Syringe) 10 ml IV PRN PRN PRN Reason: LINE FLUSH Review of Systems All systems: negative (10 point ROS performed and negative except for that listed in HPI) Exam Vital Signs Temp Pulse Resp BP Pulse Ox 98.8 F 102 H 16 137/79 99 04/17/20 23:07 04/17/20 23:07 04/17/20 23:07 04/17/20 23:07 04/17/20 23:07 Narrative exam: Gen.: Awake, alert, oriented 3. No apparent distress ENT: Trachea midline. NG tube in place with bilious output. No lymphadenopathy. No scleral icterus or conjunctival pallor CV: S1, S2 present Respiratory: No audible wheezes Abdomen: Soft, mildly distended, nontender. No rebound, rigidity, guarding Extremities: No clubbing, cyanosis, edema Back: Left lower back dressing clean, dry, intact Results - Labs 04/17/20 23:08 04/17/20 23:08 Abnormal lab results 04/17/20 04/17/20 04/18/20 Range/Units 23:08 23:08 09:10 WBC 15.3 H (4.5-11.0) K/mm3 RBC 5.24 H (3.65-5.03) M/mm3 MCV 72 L (84-94) fl MCH 24 L (28-32) pg RDW 18.5 H (13.2-15.2) % Plt Count 456 H (140-440) K/mm3 Lymph % (Auto) 13.1 L (13.4-35.0) % Seg Neutrophils % 80.4 H (40.0-70.0) % Seg Neutrophils # 12.3 H (1.8-7.7) K/mm3 Chloride 96.7 L (98-107) mmol/L Carbon Dioxide 32 H (22-30) mmol/L Creatinine 0.7 L (0.8-1.3) mg/dL Glucose 166 H (75-100) mg/dL LDL Cholesterol Direct 38 L (50-130) mg/dL Lipase 9 L (13-60) units/L Diabetes panel 04/17/20 04/18/20 04/18/20 Range/Units 23:08 09:10 09:10 Sodium 139 (137-145) mmol/L Potassium 4.2 (3.6-5.0) mmol/L Chloride 96.7 L (98-107) mmol/L Carbon Dioxide 32 H (22-30) mmol/L BUN 9 (9-20) mg/dL Creatinine 0.7 L (0.8-1.3) mg/dL Glucose 166 H (75-100) mg/dL Hemoglobin A1c 5.6 (4-6) % Calcium 9.8 (8.4-10.2) mg/dL AST 24 (5-40) units/L ALT 24 (7-56) units/L Alkaline Phosphatase 90 (35-129) units/L Total Protein 8.1 (6.3-8.2) g/dL Albumin 4.5 (3.9-5) g/dL Triglycerides 36 (2-149) mg/dL HDL Cholesterol 48 (40-59) mg/dL Calcium panel 04/17/20 Range/Units 23:08 Calcium 9.8 (8.4-10.2) mg/dL Albumin 4.5 (3.9-5) g/dL Pituitary panel 04/17/20 Range/Units 23:08 Sodium 139 (137-145) mmol/L Potassium 4.2 (3.6-5.0) mmol/L Chloride 96.7 L (98-107) mmol/L Carbon Dioxide 32 H (22-30) mmol/L BUN 9 (9-20) mg/dL Creatinine 0.7 L (0.8-1.3) mg/dL Glucose 166 H (75-100) mg/dL Calcium 9.8 (8.4-10.2) mg/dL Adrenal panel 04/17/20 Range/Units 23:08 Sodium 139 (137-145) mmol/L Potassium 4.2 (3.6-5.0) mmol/L Chloride 96.7 L (98-107) mmol/L Carbon Dioxide 32 H (22-30) mmol/L BUN 9 (9-20) mg/dL Creatinine 0.7 L (0.8-1.3) mg/dL Glucose 166 H (75-100) mg/dL Calcium 9.8 (8.4-10.2) mg/dL Total Bilirubin 0.20 (0.1-1.2) mg/dL AST 24 (5-40) units/L ALT 24 (7-56) units/L Alkaline Phosphatase 90 (35-129) units/L Total Protein 8.1 (6.3-8.2) g/dL Albumin 4.5 (3.9-5) g/dL - Imaging CT scan - abdomen: report reviewed, image reviewed CT scan - pelvis: report reviewed, image reviewed Assessment and Plan 19-year-old male with 1. SBO 2. Left psoas abscess 3. Lumbar (L3) vertebral osteomyelitis Pt stable. Elevated WBC likely 2/2 L psoas abscess. Afebrile. Plan: 1. NPO 2. IVF 3. IV abx 4. NGT to LIWS 5. dulcolax pr ordered - patient refused 6. ID consulted 7. IR consult - Discussed with Dr. Umana, patient added to schedule for tomorrow for drainage of L psoas abscess 8. Daily abdominal xray - May need Dx lap this admission to evaluate SBO. Currently stable- will follow daily and make further recs 9. [place] records pending. Patient able to access patient portal and bone bx results pending Plan discussed with patient and his father over the telephone in detail. D/W Dr. Hutchinson Thank you for this consultation. Please call with any questions or concerns. Evaluation and treatment of this patient was during the time of the national and state emergency arising from COVID19 coronavirus pandemic. Treatment and procedures performed meet the current and available best practice and guidelines for patient during the COVID pandemic.
--- NOTE | 2020-04-18 14:19 | Consultation ---
History of Present Illness - Reason for Consult Consult date: 04/18/20 Psoas abscess Requesting physician: MARIANNE HADLEY - History of Present Illness The patient is a 19-year-old male who is originally from [place], moved here at age 1 was admitted to the hospital with abdominal pain and vomiting. Over the last 8 months, patient has had chronic back pain and has been undergoing outpatient work-up, most recently, he was seen by [facility] who obtai sadie an MRI of the lumbar spine which showed a complex cystic mass around the lumbar spinal region for which he underwent an IR guided biopsy on 04/14/2020 as an outpatient. Apparently, purulent fluid was aspirated and patient is supposed to follow-up with [facility]. Meanwhile, patient has been admitted here with small bowel obstruction. Surgery is following. Patient not the best of historians, I spoke to his father (with patient's permission) on the phone to get more clarity on the timeline of events. Review of Systems: General: no fevers,chills or rigors HEENT: no new visual disturbance Respiratory: No cough, sputum, hemoptysis or shortness of breath Cardiovascular: No chest pain, syncope Gastrointestinal: No nausea, vomiting or diarrhea Genitourinary: No dysuria or hematuria Musculoskeletal: No new or worsening neck pain or back pain Neurologic: No headaches, seizures Hematologic: No easy bruising or bleeding Endocrine: No night sweats or acute weight loss Skin: negative for rash, jaundice Psychiatric: No suicidal or homicidal ideation Past History Past Medical History: other (Psoas abscess, vertebral osteo-) Past Surgical History: Other (Lumbar vertebral bone biopsy) Social history: no significant social history Family history: diabetes (Mother) Medications and Allergies Allergies Allergy/AdvReac Type Severity Reaction Status Date / Time No Known Allergies Allergy Verified 06/21/18 10:03 Home Medications Medication Instructions Recorded Confirmed Last Taken Type methOCARBAMOL [Robaxin TAB] 500 mg PO Q6H PRN #14 tablet 01/14/20 Unknown Rx predniSONE [Deltasone] 20 mg PO QDAY #5 tab 01/14/20 Unknown Rx traMADoL [Ultram] 50 mg PO Q6HR PRN #12 tablet 01/14/20 Unknown Rx Active Meds: Active Medications Acetaminophen (Acetaminophen 325 Mg Tab) 650 mg PO Q4H PRN PRN Reason: Pain MILD(1-3)/Fever >100.5/MANZANARES Albuterol (Albuterol 2.5 Mg/3 Ml Nebu) 2.5 mg IH Q4HRT PRN PRN Reason: Shortness Of Breath Bisacodyl (Bisacodyl 10 Mg Rect Supp) 10 mg VA QDAY ALFONSO Dextrose (Dextrose 50% In Water (25gm) 50 Ml Syringe) 50 ml IV Q30MIN PRN; Protocol PRN Reason: Hypoglycemia Morphine Sulfate (Morphine 2 Mg/1 Ml Inj) 2 mg IV Q4H PRN PRN Reason: Pain , Severe (7-10) Naloxone HCl (Naloxone 0.4 Mg/1 Ml Inj) 0.1 mg IV Q2MIN PRN PRN Reason: Res Rate </= 8 or 02 SAT < 92% Ondansetron HCl (Ondansetron 4 Mg/2 Ml Inj) 4 mg IV Q4H PRN PRN Reason: Nausea And Vomiting Sodium Chloride (Sodium Chloride 0.9% 10 Ml Flush Syringe) 10 ml IV BID ALFONSO Sodium Chloride (Sodium Chloride 0.9% 10 Ml Flush Syringe) 10 ml IV PRN PRN PRN Reason: LINE FLUSH Physical Examination - Physical Exam Narrative exam: Physical Exam: Constitutional: Alert, cooperative. No acute distress Head, Ears, Nose: Normocephalic, atraumatic. External ears, nose normal Eyes: Conjunctivae/corneas clear. No icterus. No ptosis. Neck: Supple, no meningeal signs Oral: mask Cardiovascular: S1, S2 normal. Respiratory: Good air entry, clear to auscultation bilaterally GI: Soft, non-tender; bowel sounds normal. No peritoneal signs Musculoskeletal: No pedal edema, no cyanosis. Left back with dressing Skin: No rash or abscess Hem/Lymphatic: No palpable cervical or supraclavicular nodes. No lymphangitis Psych: Mood ok. Affect normal Neurological: Awake, alert, oriented. No gross abnormality - Constitutional Vitals: Vital Signs Temp Pulse Resp BP Pulse Ox 99.2 F 86 18 129/77 100 04/18/20 12:41 04/18/20 12:41 04/18/20 12:41 04/18/20 12:41 04/18/20 12:41 Temperature -Last 24 Hours Temperature 99.2 F Temperature 98.0 F Temperature 98.8 F Results - Labs CBC & Chem 7: 04/17/20 23:08 03/07/21 23:08 Labs: Abnormal lab results 04/17/20 04/17/20 04/18/20 Range/Units 23:08 23:08 09:10 WBC 15.3 H (4.5-11.0) K/mm3 RBC 5.24 H (3.65-5.03) M/mm3 MCV 72 L (84-94) fl MCH 24 L (28-32) pg RDW 18.5 H (13.2-15.2) % Plt Count 456 H (140-440) K/mm3 Lymph % (Auto) 13.1 L (13.4-35.0) % Seg Neutrophils % 80.4 H (40.0-70.0) % Seg Neutrophils # 12.3 H (1.8-7.7) K/mm3 Chloride 96.7 L (98-107) mmol/L Carbon Dioxide 32 H (22-30) mmol/L Creatinine 0.7 L (0.8-1.3) mg/dL Glucose 166 H (75-100) mg/dL LDL Cholesterol Direct 38 L (50-130) mg/dL Lipase 9 L (13-60) units/L - Imaging and Cardiology CT scan - abdomen: report reviewed, image reviewed (L psoas abscess) Assessment and Plan Cultures: None yet A/P: 19/M who is originally from [place], moved here at age 1, denies substance abuse admitted with: #L3 lumbar spinal osteomyelitis, left psoas abscess: Seems to be a subacute/chronic process, has undergone outpatient work-up over the last 8 months. He was seen by [facility] who obtained an MRI of the lumbar spine which showed a complex cystic mass around the lumbar spinal region for which he underwent an IR guided biopsy on 04/14/2020 as an outpatient. Apparently, purulent fluid was aspirated. #SBO: Gen Surg following. #Leucocytosis, thrombocytosis secondary to above Recs: -Hold off on empiric antibiotics for now till diagnosis is clear (received 1 dose of Zosyn and vancomycin in the ER) -Blood cultures ordered -Obtain records of cultures and biopsy from left psoas aspiration done at [facility] on 04/14/2020 -Agree with plans for drainage here, please send routine bacterial, fungal and A FB cultures from drainage -TB QuantiFERON gold ordered -TTE ordered -F/U urine tox screen -HIV screen Spoke to his father on the phone. Jose Motley MD, FACP [facility] ([facility] O: [phone] F: [phone]
[2020-04-18] MEDS ORDERED: PHENOL 1.4% 177 ML BOTTLE MM PRN (20:43)
[2020-04-18] MEDS ORDERED: SODIUM CHLORIDE 0.9% 1000 ML 1,000 ML IV SCH (21:45)
[2020-04-19 05:24] LABS: Basophils % (Auto) 0.1 % (0.0-1.8); Eosinophils % (Auto) 0.1 % (0.0-4.3); Hematocrit 36.6 % (35.5-45.6); Hemoglobin 12.1 gm/dl (11.8-15.2); Lymphocytes # (Auto) 0.8 K/mm3 (1.2-5.4); Lymphocytes % (Auto) 6.6 % (13.4-35.0); Mean Corpuscular HGB Conc 33 % (32-34); Mean Corpuscular Volume 71 fl (84-94); Monocytes # (Auto) 0.6 K/mm3 (0.0-0.8); Monocytes % (Auto) 4.7 % (0.0-7.3); Platelet Count 409 K/mm3 (140-440); Red Blood Count 5.14 M/mm3 (3.65-5.03); Red Cell Distribution Width 18.4 % (13.2-15.2)
[2020-04-19 05:40] LABS: Blood Urea Nitrogen 10 mg/dL (9-20); Calcium 9.3 mg/dL (8.4-10.2); Hemolysis Index 0
[2020-04-19 05:41] LABS: BUN/Creatinine Ratio 14
--- NOTE | 2020-04-19 07:59 | XRay Report ---
CHEST AND ABDOMINAL SERIES HISTORY: Small bowel obstruction. COMPARISON: Previous day. Chest one view: Heart size is normal. The lungs are clear. An NG tube remains in satisfactory positio n. Two-view abdomen: Persistent distended small bowel with air-fluid levels. IMPRESSION: Persistent small bowel obstruction without significant change. Signer Name: Aly Briones MD Signed: 04/19/2020 7:54 AM Workstation Name: [id number]
[2020-04-19] MEDS ORDERED: fentaNYL 100 MCG/2 ML INJ IV NR (08:48)
[2020-04-19] MEDS ORDERED: MIDAZOLAM 5 MG/5 ML INJ MDV IV NR (08:48)
[2020-04-19] MEDS ORDERED: MIDAZOLAM 5 MG/5 ML INJ MDV IV ONE (08:54)
[2020-04-19] MEDS ORDERED: fentaNYL 100 MCG/2 ML INJ ONE (08:54)
[2020-04-19] MEDS ORDERED: LIDOCAINE 2%/EPINEPHRINE 1:100,000 VIAL (20 ML) INFILTRATI NR (09:05)
--- NOTE | 2020-04-19 10:14 | Progress Note ---
Assessment and Plan Assessment and plan: Assessment and plan; --Small bowel obstruction : N.p.o. status Continue NGT/low intermittent suction as needed IV fluids. IV antibiotics Surgery following --Sepsis secondary to psoas abscess And osteomyelitis of L3 Continue IV antibiotics Follow cultures --Left psoas abscess: Continue IV antibiotics, supportive care Follow cultures, ID following -- Lumbar (L3) vertebral osteomyelitis IV antibiotics per ID, follow cultures Supportive care Awaiting records from an outside hospital Closely monitor the patient and adjust management as needed History Interval history: I have seen and examined the patient at the bedside this afternoon Patient's chart and medications reviewed Patient had CT-guided aspiration of abscess today per IR Patient complains of mild pain Vital signs noted Hospitalist Physical - Constitutional Vitals: Temp Pulse Resp BP Pulse Ox 99.8 F H 91 H 14 125/74 100 04/19/20 06:57 04/19/20 10:02 04/19/20 10:02 04/19/20 10:02 04/19/20 10:02 General appearance: Present: no acute distress, well-nourished - EENT Eyes: Present: PERRL, EOM intact - Neck Neck: Present: supple, normal ROM - Respiratory Respiratory effort: normal Respiratory: bilateral: diminished, negative: rales, rhonchi, wheezing - Cardiovascular Rhythm: regular Heart Sounds: Present: S1 & S2 - Extremities Extremities: no ischemia, No edema - Abdominal General gastrointestinal: soft, non-tender, non-distended, normal bowel sounds - Integumentary Integumentary: Present: clear, warm - Psychiatric Psychiatric: appropriate mood/affect, cooperative - Neurologic Neurologic: CNII-XII intact, moves all extremities Results - Labs CBC & Chem 7: 04/19/20 04:52 04/19/20 04:52 Labs: Laboratory Last Values WBC 12.3 K/mm3 (4.5-11.0) H 04/19/20 04:52 RBC 5.14 M/mm3 (3.65-5.03) H 04/19/20 04:52 Hgb 12.1 gm/dl (11.8-15.2) 04/19/20 04:52 Hct 36.6 % (35.5-45.6) 04/19/20 04:52 MCV 71 fl (84-94) L 04/19/20 04:52 MCH 24 pg (28-32) L 04/19/20 04:52 MCHC 33 % (32-34) 04/19/20 04:52 RDW 18.4 % (13.2-15.2) H 04/19/20 04:52 Plt Count 409 K/mm3 (140-440) 04/19/20 04:52 Lymph % (Auto) 6.6 % (13.4-35.0) L 04/19/20 04:52 [place] % (Auto) 4.7 % (0.0-7.3) 04/19/20 04:52 Eos % (Auto) 0.1 % (0.0-4.3) 04/19/20 04:52 Baso % (Auto) 0.1 % (0.0-1.8) 04/19/20 04:52 Lymph # (Auto) 0.8 K/mm3 (1.2-5.4) L 04/19/20 04:52 [place] # (Auto) 0.6 K/mm3 (0.0-0.8) 04/19/20 04:52 Eos # (Auto) 0.0 K/mm3 (0.0-0.4) 04/19/20 04:52 Baso # (Auto) 0.0 K/mm3 (0.0-0.1) 04/19/20 04:52 Seg Neutrophils % 88.5 % (40.0-70.0) H 04/19/20 04:52 Seg Neutrophils # 10.9 K/mm3 (1.8-7.7) H 04/19/20 04:52 Sodium 136 mmol/L (137-145) L 04/19/20 04:52 Potassium 3.7 mmol/L (3.6-5.0) 04/19/20 04:52 Chloride 97.5 mmol/L (98-107) L 04/19/20 04:52 Carbon Dioxide 27 mmol/L (22-30) 04/19/20 04:52 Anion Gap 15 mmol/L 04/19/20 04:52 BUN 10 mg/dL (9-20) 04/19/20 04:52 Creatinine 0.7 mg/dL (0.8-1.3) L 04/19/20 04:52 Estimated GFR > 60 ml/min 04/19/20 04:52 BUN/Creatinine Ratio 14 % 04/19/20 04:52 Glucose 93 mg/dL (75-100) 04/19/20 04:52 Hemoglobin A1c 5.6 % (4-6) 04/18/20 09:10 Lactic Acid 0.90 mmol/L (0.7-2.0) 04/19/20 04:52 Calcium 9.3 mg/dL (8.4-10.2) 04/19/20 04:52 Total Bilirubin 0.20 mg/dL (0.1-1.2) 04/17/20 23:08 AST 24 units/L (5-40) 04/17/20 23:08 ALT 24 units/L (7-56) 04/17/20 23:08 Alkaline Phosphatase 90 units/L (35-129) 04/17/20 23:08 Total Protein 8.1 g/dL (6.3-8.2) 04/17/20 23:08 Albumin 4.5 g/dL (3.9-5) 04/17/20 23:08 Albumin/Globulin Ratio 1.3 % 04/17/20 23:08 Triglycerides 36 mg/dL (2-149) 04/18/20 09:10 Cholesterol 89 mg/dL (50-199) 04/18/20 09:10 LDL Cholesterol Direct 38 mg/dL (50-130) L 04/18/20 09:10 HDL Cholesterol 48 mg/dL (40-59) 04/18/20 09:10 Cholesterol/HDL Ratio 1.85 % 04/18/20 09:10 Lipase 9 units/L (13-60) L 04/17/20 23:08 Urine Color Yellow (Yellow) 04/18/20 00:40 Urine Turbidity Slightly-cloudy (Clear) 04/18/20 00:40 Urine pH 5.0 (5.0-7.0) 04/18/20 00:40 Ur Specific [place] 1.017 (1.003-1.030) 04/18/20 00:40 Urine Protein 30 mg/dl mg/dL (Negative) 04/18/20 00:40 Urine Glucose (UA) Neg mg/dL (Negative) 04/18/20 00:40 Urine Ketones 20 mg/dL (Negative) 04/18/20 00:40 Urine Blood Neg (Negative) 04/18/20 00:40 Urine Nitrite Neg (Negative) 04/18/20 00:40 Urine Bilirubin Neg (Negative) 04/18/20 00:40 Urine Urobilinogen < 2.0 mg/dL (<2.0) 04/18/20 00:40 Ur Leukocyte Esterase Neg (Negative) 04/18/20 00:40 Urine WBC (Auto) 2.0 /HPF (0.0-6.0) 04/18/20 00:40 Urine RBC (Auto) < 1.0 /HPF (0.0-6.0) 04/18/20 00:40 U Epithel Cells (Auto) < 1.0 /HPF (0-13.0) 04/18/20 00:40 Urine Mucus Few /HPF 04/18/20 00:40 HIV 1&2 Antibody Rapid Non react (Non React) 04/19/20 04:52 HIV P24 Antigen Non react (Non React) 04/19/20 04:52 Microbiology: Microbiology 04/18/20 18:47 Peripheral/Venous Blood Culture - Preliminary Culture in Progress 04/18/20 16:55 Peripheral/Venous Blood Culture - Preliminary Culture in Progress Campbell/IV: Voiding Method Urinal Active Medications - Current Medications Current Medications: Generic Name Dose Route Start Last Admin Trade Name Freq PRN Reason Stop Dose Admin Acetaminophen 650 mg 04/18/20 08:00 Acetaminophen 325 Mg Tab PO Q4H PRN Pain MILD(1-3)/Fever >100.5/MANZANARES Albuterol 2.5 mg 04/18/20 08:00 Albuterol 2.5 Mg/3 Ml Nebu IH Q4HRT PRN Shortness Of Breath Bisacodyl 10 mg 04/18/20 10:00 04/18/20 10:44 Bisacodyl 10 Mg Rect Supp WI Not Given QDAY ALFONSO Dextrose 50 ml 04/18/20 08:00 Dextrose 50% In Water (25gm) 50 Ml Syringe IV Q30MIN PRN Hypoglycemia Protocol Fentanyl 100 mcg 04/19/20 08:48 Fentanyl 100 Mcg/2 Ml Inj IV 04/19/20 18:00 ONCE NR Sodium Chloride 1,000 mls @ 125 mls/hr 04/18/20 21:45 04/19/20 05:34 Nacl 0.9% 1000 Ml IV 125 mls/hr DIRECT ALFONSO Administration Lidocaine/Epinephrine 20 ml 04/19/20 09:05 Lidocaine 2%/Epinephrine 1:100,000 Vial (20 Ml) INFILTRATI 04/19/20 18:00 ONCE NR Midazolam HCl 5 mg 04/19/20 08:48 Midazolam 5 Mg/5 Ml Inj Mdv IV 04/19/20 18:00 ONCE NR Morphine Sulfate 2 mg 04/18/20 08:30 Morphine 2 Mg/1 Ml Inj IV Q4H PRN Pain , Severe (7-10) Naloxone HCl 0.1 mg 04/18/20 08:00 Naloxone 0.4 Mg/1 Ml Inj IV Q2MIN PRN Res Rate </= 8 or 02 SAT < 92% Ondansetron HCl 4 mg 04/18/20 08:00 04/18/20 22:41 Ondansetron 4 Mg/2 Ml Inj IV 4 mg Q4H PRN Administration Nausea And Vomiting Phenol 1 spray 04/18/20 20:43 Phenol 1.4% 177 Ml Bottle MM PRN PRN Sore Throat Sodium Chloride 10 ml 04/18/20 10:00 04/19/20 06:10 Sodium Chloride 0.9% 10 Ml Flush Syringe IV 10 ml BID ALFONSO Administration Sodium Chloride 10 ml 04/18/20 08:00 Sodium Chloride 0.9% 10 Ml Flush Syringe IV PRN PRN LINE FLUSH Nutrition/Malnutrition Assess - Dietary Evaluation Nutrition/Malnutrition Findings: Nutrition Notes Start: 04/18/20 08:17 Freq: Status: Active Protocol: Document 04/18/20 08:18 CW (Rec: 04/18/20 08:28 CW [email or web address]) Nutrition Notes Need for Assessment generated from: MD Order Initial or Follow up Assessment Current Diagnosis Small Bowel Obstruction Other Pertinent Diagnosis CA Current Diet NPO Labs/Tests NS 2L Pertinent Medications BG 166 Height 5 ft 8 in Weight 59.3 kg Usual Body Weight 59 kg [place] Body Weight (kg) 70.00 BMI 19.8 Intake Prior to Admission Poor Weight change and time frame Weight stable at this time Weight Status Appropriate Subjective/Other Information Consult for malnutrition. Pt reports having no appetite related to vomiting following meals during the past 2 days. Pt denies nausea at this time. No reports of vomiting following admission. NFPE conducted. Pt appears to not be malnourished in head and arms. Pt reports UBW of 130 lbs. No food preferences noted . 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 No Is Patient Ambulatory and/or Out of Bed Yes REE-([facility]-ambulatory/OOB) [ 4.250 [id number]] Calculation Used for Recommendations [facility] Additional Notes protein needs: 47 - 59g (0.8 - 1 g/kgBW) fluid needs: 1 ml/kcal Nutrition Intervention Change Diet Order: Diet advancement when medically feasible Goal #1 Diet advancement Anticipated Discharge Needs: unabel to determine at this time Follow-Up By: 04/20/20 Additional Comments F/U diet advancement
--- NOTE | 2020-04-19 10:39 | Operative Report ---
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 Continuous cardiopulmonary monitoring was utilized. PROCEDURE: Following an explanation of the risks, benefits and alternatives; written informed consent was obtained. The patient was brought to the CT suite and placed in the supine position on the CT table. Tipping Machine Operator Automatic CT was performed of the abdomen and pelvis. After determining the appropriate site, the skin was infiltrated with lidocaine and a finder needle was placed. Intermittent CT was performed until the desired position was identified. The 18 gauge trocar needle was inserted into the left ileopsoas fluid collection. J wire was then advanced through the needle and into the collection. The needle was exchanged for multiple dilators that were used to serially dilate over the wire. A 8 Fr APD drain was advanced over the wire and metal stiffener. The metal stiffener and wire were removed. CT scanning was performed. The pigtail was secured and aspirated until no more material could be aspirated. 2-0 Silk sutures were used to secure the catheter. Sterile bandage was applied. The patient tolerated the procedure well. There were no immediate postprocedural complications. FINDINGS: 1. Initial CT demonstrates a left ileopsoas fluid collection. There is a satisfactory window for CT drainage. 2. Intermittent CT demonstrates the 18 gauge needle was placed in the fluid collection. 3. Wire is coiled in the fluid collection. 4. CT documents placement of a 8 Fr drain in the ileopsoas fluid collection. 5. A total of approximately 60 mL of seropurulent material was aspirated through the drain and initial needle. IMPRESSION: Successful CT guided 8 Citizen [place] drain placement in an abdominal collection.
--- NOTE | 2020-04-19 14:23 | Progress Note ---
Assessment and Plan 19-year-old male with 1. SBO 2. Left psoas abscess s/p IR drainage today 3. Lumbar (L3) vertebral osteomyelitis Obstruction series 04/19/2020images and radiology report independently reviewedunchanged small bowel obstruction Patient is stable. NG tube remains bilious. Plan: 1. NPO 2. IVF 3. NGT to LIWS 4. prn pain control 5. GI ppx 6. DVT ppx 7. IR drain per orders and antibiotics per IR 8. strict I/Os 9. KUB in am 10. Discussed imaging findings with the patient and his father at the patient's request. Explained that the patient is not improving clinically or radiographically from the small bowel obstruction. I explained to them that if there is no significant improvement in the next 24 hours, I strongly recommend proceeding with a diagnostic laparoscopy. The patient's father seems reluctant about surgery but understands the recommendation. As the patient has difficulty understanding the complex nature of his condition, he requested his father's presence tomorrow to further discuss surgery and make a decision. I have arranged a visit to the hospital for his father tomorrow a.m. Thank you for this consultation. Please call with any questions or concerns. Evaluation and treatment of this patient was during the time of the national and state emergency arising from COVID19 coronavirus pandemic. Treatment and procedures performed meet the current and available best practice and guidelines for patient during the COVID pandemic. Subjective Date of service: 04/19/20 Narrative: Pt seen and examined. States he feels well. Only mild abdominal discomfort intermittently but much better than when he presented to hospital. No n/v. Isolated fever last night but none since. Underwent drainage of L psoas abscess by IR today. He denies flatus or BM. He is hungry. Objective Vital Signs - 12hr 04/19/20 04/19/20 04/19/20 05:07 05:44 06:57 Temperature 102.3 F H 99.8 F H 99.8 F H Pulse Rate 130 H 100 H 122 H Pulse Rate [ Intra-Procedure ] Pulse Rate [ Post-Procedure] Pulse Rate [Pre -Procedure] Respiratory 18 18 16 Rate Respiratory Rate [Intra- Procedure] Respiratory Rate [Post- Procedure] Respiratory Rate [Pre- Procedure] Blood Pressure 120/47 111/55 Blood Pressure [Intra- Procedure] Blood Pressure [Post-Procedure ] Blood Pressure [Pre-Procedure] O2 Sat by Pulse 92 98 94 Oximetry O2 Sat by Pulse Oximetry [ Intra-Procedure ] O2 Sat by Pulse Oximetry [Post -Procedure] O2 Sat by Pulse Oximetry [Pre- Procedure] 04/19/20 04/19/20 04/19/20 08:42 10:02 10:10 Temperature Pulse Rate Pulse Rate [ 91 H 91 H Intra-Procedure ] Pulse Rate [ Post-Procedure] Pulse Rate [Pre 91 H -Procedure] Respiratory Rate Respiratory 14 12 Rate [Intra- Procedure] Respiratory Rate [Post- Procedure] Respiratory 16 Rate [Pre- Procedure] Blood Pressure Blood Pressure 125/74 112/64 [Intra- Procedure] Blood Pressure [Post-Procedure ] Blood Pressure 121/70 [Pre-Procedure] O2 Sat by Pulse Oximetry O2 Sat by Pulse 100 100 Oximetry [ Intra-Procedure ] O2 Sat by Pulse Oximetry [Post -Procedure] O2 Sat by Pulse 100 Oximetry [Pre- Procedure] 04/19/20 04/19/20 04/19/20 10:14 10:19 10:23 Temperature Pulse Rate Pulse Rate [ 93 H 95 H 93 H Intra-Procedure ] Pulse Rate [ Post-Procedure] Pulse Rate [Pre -Procedure] Respiratory Rate Respiratory 12 16 14 Rate [Intra- Procedure] Respiratory Rate [Post- Procedure] Respiratory Rate [Pre- Procedure] Blood Pressure Blood Pressure 116/64 120/61 122/68 [Intra- Procedure] Blood Pressure [Post-Procedure ] Blood Pressure [Pre-Procedure] O2 Sat by Pulse Oximetry O2 Sat by Pulse 100 99 95 Oximetry [ Intra-Procedure ] O2 Sat by Pulse Oximetry [Post -Procedure] O2 Sat by Pulse Oximetry [Pre- Procedure] 04/19/20 10:36 Temperature Pulse Rate Pulse Rate [ Intra-Procedure ] Pulse Rate [ 91 H Post-Procedure] Pulse Rate [Pre -Procedure] Respiratory Rate Respiratory Rate [Intra- Procedure] Respiratory 16 Rate [Post- Procedure] Respiratory Rate [Pre- Procedure] Blood Pressure Blood Pressure [Intra- Procedure] Blood Pressure 108/57 [Post-Procedure ] Blood Pressure [Pre-Procedure] O2 Sat by Pulse Oximetry O2 Sat by Pulse Oximetry [ Intra-Procedure ] O2 Sat by Pulse 98 Oximetry [Post -Procedure] O2 Sat by Pulse Oximetry [Pre- Procedure] - General physical appearance Narrative Exam: Gen: AAOx3. NAD ENT: NGT with light bilious drainage CV: s1, S2+ Resp: even and unlabored Abd: soft, NT, mildly distended. No r/r/g. LLQ drain with seropurulent fluid in collection bag Ext: no c/c/e - Labs 04/19/20 04:52 04/19/20 04:52 Diabetes panel 04/19/20 Range/Units 04:52 Sodium 136 L (137-145) mmol/L Potassium 3.7 (3.6-5.0) mmol/L Chloride 97.5 L (98-107) mmol/L Carbon Dioxide 27 (22-30) mmol/L BUN 10 (9-20) mg/dL Creatinine 0.7 L (0.8-1.3) mg/dL Glucose 93 (75-100) mg/dL Calcium 9.3 (8.4-10.2) mg/dL Calcium panel 04/19/20 Range/Units 04:52 Calcium 9.3 (8.4-10.2) mg/dL Pituitary panel 04/19/20 Range/Units 04:52 Sodium 136 L (137-145) mmol/L Potassium 3.7 (3.6-5.0) mmol/L Chloride 97.5 L (98-107) mmol/L Carbon Dioxide 27 (22-30) mmol/L BUN 10 (9-20) mg/dL Creatinine 0.7 L (0.8-1.3) mg/dL Glucose 93 (75-100) mg/dL Calcium 9.3 (8.4-10.2) mg/dL Adrenal panel 04/19/20 Range/Units 04:52 Sodium 136 L (137-145) mmol/L Potassium 3.7 (3.6-5.0) mmol/L Chloride 97.5 L (98-107) mmol/L Carbon Dioxide 27 (22-30) mmol/L BUN 10 (9-20) mg/dL Creatinine 0.7 L (0.8-1.3) mg/dL Glucose 93 (75-100) mg/dL Calcium 9.3 (8.4-10.2) mg/dL
--- NOTE | 2020-04-19 14:36 | Progress Note ---
Assessment and Plan Cultures: 04/18/2020 blood culture: In process HIV: Nonreactive A/P: 19/M who is originally from [place], moved here at age 1, denies substance abuse admitted with: #L3 lumbar spinal osteomyelitis, left psoas abscess: Seems to be a subacute/chronic process, has undergone outpatient work-up over the last 8 months. He was seen by [facility] who obtained an MRI of the lumbar spine which showed a complex cystic mass around the lumbar spinal region for which he underwent an IR guided biopsy on 04/14/2020 as an outpatient. Apparently, purulent fluid was aspirated there. [facility] results not available yet. Underwent IR drainage, about 60 mL of seropurulent material was aspirated, 8 Estonian drain was placed. #SBO: Gen Surg following. 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 No history of treatment. Recs: -Empiric cefepime and vancomycin started -Spoke to microbiology lab, told him to add fungal and AFB cultures to drainage by IR today -f/u records of cultures and biopsy from left psoas aspiration done at [facility] on 04/14/2020 -f/u TTE, urine tox screen -I would ideally also like to add anti-TB therapy, however patient is n.p.o. and has an NG tube in place to suction, will wait for his SBO to resolve before starting RIPE therapy Spoke to his father on the phone again today. Jose Motley MD, FACP [facility] ([facility] O: [phone] F: [phone] Subjective Date of service: 04/19/20 Interval history: Fever this morning, T-max of 102.3 F. Underwent IR drainage, about 60 mL of seropurulent material was aspirated, 8 Estonian drain was placed Objective - Exam Narrative Exam: Physical Exam: Constitutional: Alert, cooperative. No acute distress Head, Ears, Nose: Normocephalic, atraumatic. External ears, nose normal Eyes: Conjunctivae/corneas clear. No icterus. No ptosis. Neck: Supple, no meningeal signs Oral: mask Cardiovascular: S1, S2 normal. Respiratory: Good air entry, clear to auscultation bilaterally GI: Soft, non-tender; bowel sounds normal. No peritoneal signs Musculoskeletal: No pedal edema, no cyanosis. Drain + in back. Skin: No rash or abscess Hem/Lymphatic: No palpable cervical or supraclavicular nodes. No lymphangitis Psych: Mood ok. Affect normal Neurological: Awake, alert, oriented. No gross abnormality - Constitutional Vitals: Vital Signs Temp Pulse Resp BP Pulse Ox 99.8 F H 91 H 16 108/57 98 04/19/20 06:57 04/19/20 10:36 04/19/20 10:36 04/19/20 10:36 04/19/20 10:36 Temperature -Last 24 Hours Temperature 99.8 F Temperature 99.8 F Temperature 102.3 F Temperature 98.7 F Temperature 99.0 F Temperature 98.9 F - Labs CBC & Chem 7: 04/19/20 04:52 04/19/20 04:52 Labs: Abnormal lab results 04/19/20 04/19/20 Range/Units 04:52 04:52 WBC 12.3 H (4.5-11.0) K/mm3 RBC 5.14 H (3.65-5.03) M/mm3 MCV 71 L (84-94) fl MCH 24 L (28-32) pg RDW 18.4 H (13.2-15.2) % Lymph % (Auto) 6.6 L (13.4-35.0) % Lymph # (Auto) 0.8 L (1.2-5.4) K/mm3 Seg Neutrophils % 88.5 H (40.0-70.0) % Seg Neutrophils # 10.9 H (1.8-7.7) K/mm3 Sodium 136 L (137-145) mmol/L Chloride 97.5 L (98-107) mmol/L Creatinine 0.7 L (0.8-1.3) mg/dL
[2020-04-19] MEDS ORDERED: VANCOMYCIN 1,250 MG in SODIUM CHLORIDE 0.9% 250ML 250 ML IV ONE (15:00)
[2020-04-19] MEDS ORDERED: CEFEPIME/NS 2 GM/100 ML 2 GM/100 ML BAG IV SCH (15:00)
[2020-04-19] MEDS ORDERED: VANCOMYCIN PHARMACY TO DOSE IV SCH (15:00)
[2020-04-19] MEDS: CEFEPIME/NS 2 GM/100 ML 2 GM/100 ML BAG IV SCH (22:12)
[2020-04-19] MEDS: MORPHINE 2 MG/1 ML INJ IV PRN (22:22)
[2020-04-20] MEDS: VANCOMYCIN/NS 1 GM/250 ML 1 GM/250 ML BAG IV SCH ×2 (02:09→14:32)
[2020-04-20] MEDS: MORPHINE 2 MG/1 ML INJ IV PRN ×2 (02:32→21:34)
[2020-04-20 08:51] LABS: Hematocrit 33.3 % (35.5-45.6); Hemoglobin 11.2 gm/dl (11.8-15.2); Mean Corpuscular HGB Conc 34 % (32-34); Mean Corpuscular Volume 71 fl (84-94); Platelet Count 366 K/mm3 (140-440); Red Blood Count 4.71 M/mm3 (3.65-5.03); Red Cell Distribution Width 18.8 % (13.2-15.2)
--- NOTE | 2020-04-20 08:51 | XRay Report ---
ABDOMEN 1 VIEW(S) INDICATION / CLINICAL INFORMATION: Small bowel obstruction. COMPARISON: Abdominal series performed yesterday FINDINGS: TUBES / LINES: NG tube is unchanged terminating in the fundus of the stomach. Percutaneous drain has been placed in the left lower quadrant since the previous exam. BOWEL GAS PATTERN: Small bowel dilatation has decreased by 25-50%. There is normal stool and gas in t he colon. FREE AIR / EXTRALUMINAL GAS: None seen. ADDITIONAL FINDINGS: No significant additional findings. IMPRESSION: Interval drain placement in the left lower quadrant. Mild improvement in the small bowel obstruction pattern. Signer Name: Noel Augustin Jr, MD Signed: 04/20/2020 8:47 AM Workstation Name: [id number]
[2020-04-20 09:12] LABS: Blood Urea Nitrogen 12 mg/dL (9-20); Hemolysis Index 1
[2020-04-20 09:52] LABS: BUN/Creatinine Ratio 17
--- NOTE | 2020-04-20 10:26 | Progress Note ---
Assessment and Plan 19-year-old male with 1. SBO 2. Left psoas abscess s/p IR drainage today 3. Lumbar (L3) vertebral osteomyelitis Obstruction series 04/20/2020images and radiology report independently [id number] improvement in small bowel dilatation, normal gas and stool pattern in colon Patient is stable. WBC is normal. Afebrile. Plan: 1. NPO 2. IVF 3. NGT to LIWS 4. prn pain control 5. GI ppx 6. DVT ppx 7. IR drain per orders and antibiotics per IR 8. strict I/Os 9. Labs, imaging findings reviewed with patient and his parents who are at the bedside. I showed them the imaging, and explained that I do not have a definitive etiology for bowel obstruction. Because of this and imaging findings still showing SBO, I recommend diagnostic laparoscopy to evaluate bowel and explained in detail how this would be done. I explained to them the different causes of bowel obstructions including adhesions from prior surgery, hernia, masses, etc. They understand but are still reluctant to proceed with surgery. As an alternative, I have recommended SBFT. If this shows persistent obstruction or patient does not tolerate the contrast, then we would be left with surgical option. They are ok with this. Will follow up with patient and his father once SBFT is completed. Thank you for this consultation. Please call with any questions or concerns. Evaluation and treatment of this patient was during the time of the national and state emergency arising from COVID19 coronavirus pandemic. Treatment and procedures performed meet the current and available best practice and guidelines for patient during the COVID pandemic. Subjective Date of service: 04/20/20 Narrative: Patient seen and examined. Parents present in room. Pt states he feels well and better than yesterday. No complaints. No abdominal pain. No n/v. He had flatus. Objective Vital Signs - 12hr 04/20/20 04/20/20 04/20/20 00:03 05:17 07:18 Temperature 98.2 F 98.4 F 99.0 F Pulse Rate 84 95 H 95 H Respiratory 18 18 18 Rate Blood Pressure 112/60 107/55 116/71 O2 Sat by Pulse 98 98 97 Oximetry - General physical appearance Narrative Exam: Gen: AAOx3. NAD ENT: NGT - brown/bilious output CV: s1, S2+ Resp: even and unlabored Abd: soft, NT, mildly distended. LLQ drain with serosang drainage Ext: no c/c/e - Labs 04/20/20 08:33 04/20/20 08:33 Diabetes panel 04/20/20 Range/Units 08:33 Sodium 140 (137-145) mmol/L Potassium 3.6 (3.6-5.0) mmol/L Chloride 100.1 (98-107) mmol/L Carbon Dioxide 25 (22-30) mmol/L BUN 12 (9-20) mg/dL Creatinine 0.7 L (0.8-1.3) mg/dL Glucose 79 (75-100) mg/dL Calcium 9.0 (8.4-10.2) mg/dL Calcium panel 04/20/20 Range/Units 08:33 Calcium 9.0 (8.4-10.2) mg/dL Phosphorus 3.50 (2.5-4.5) mg/dL Pituitary panel 04/20/20 Range/Units 08:33 Sodium 140 (137-145) mmol/L Potassium 3.6 (3.6-5.0) mmol/L Chloride 100.1 (98-107) mmol/L Carbon Dioxide 25 (22-30) mmol/L BUN 12 (9-20) mg/dL Creatinine 0.7 L (0.8-1.3) mg/dL Glucose 79 (75-100) mg/dL Calcium 9.0 (8.4-10.2) mg/dL Adrenal panel 04/20/20 Range/Units 08:33 Sodium 140 (137-145) mmol/L Potassium 3.6 (3.6-5.0) mmol/L Chloride 100.1 (98-107) mmol/L Carbon Dioxide 25 (22-30) mmol/L BUN 12 (9-20) mg/dL Creatinine 0.7 L (0.8-1.3) mg/dL Glucose 79 (75-100) mg/dL Calcium 9.0 (8.4-10.2) mg/dL
[2020-04-20] MEDS: CEFEPIME/NS 2 GM/100 ML 2 GM/100 ML BAG IV SCH ×2 (11:44→21:24)
--- NOTE | 2020-04-20 11:44 | Fluoroscopy Report ---
SMALL BOWEL FOLLOW-THROUGH HISTORY: Small bowel obstruction. TECHNIQUE: Single contrast Gastrografin technique utilized to evaluate the small bowel. FINDINGS: Small bowel transit time was 45 minutes which is normal. No fold thickening, mass, mass e ffect, stenosis, or obstruction. The terminal ileum is normal in appearance. IMPRESSION: Unremarkable exam. FLUOROSCOPIC TIME: 0 minutes NUMBER OF FLUOROSCOPIC IMAGES: 0 Signer Name: Noel Augustin Jr, MD Signed: 04/20/2020 11:39 AM Workstation Name: [id number]
[2020-04-20] MEDS: D5NS W/KCL 20 MEQ 20 MEQ/1,000 ML BAG IV SCH (11:46)
[2020-04-20] MEDS: ACETAMINOPHEN 325 MG TAB PO PRN (11:47)
--- NOTE | 2020-04-20 12:14 | Progress Note ---
Assessment and Plan Cultures: 04/18/2020 blood culture: no growth HIV: Nonreactive A/P: 19/M who is originally from [place], moved here at age 1, denies substance abuse admitted with: #L3 lumbar spinal osteomyelitis, left psoas abscess: Seems to be a subacute/chronic process, has undergone outpatient work-up over the last 8 months. He was seen by [facility] who obtained an MRI of the lumbar spine which showed a complex cystic mass around the lumbar spinal region for which he underwent an IR guided biopsy on 04/14/2020 as an outpatient. Apparently, purulent fluid was aspirated there. [facility] results not available yet. Underwent IR drainage, about 60 mL of seropurulent material was aspirated, 8 Irish drain was placed. #SBO: Gen Surg following. Unexplained etiology, patient without h/o prior abdominal surgery. 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 No history of treatment. D/W patient's father at bedside. Recs: -continue empiric cefepime and vancomycin -f/u bacterial, fungal and AFB cultures from IR drainage here -f/u records of cultures and biopsy from left psoas aspiration done at [facility] on 04/14/2020, still not available -f/u TTE, urine tox screen -d/w Dr. Lazcano, planned for NG tube removal today, so will start him on RIPE therapy Jose Motley MD, FACP [facility] ([facility] O: [phone] F: [phone] Subjective Date of service: 04/20/20 Interval history: Low grade fever today. Parents at bedside. No vomiting. Objective - Exam Narrative Exam: Physical Exam: Constitutional: Alert, cooperative. No acute distress Head, Ears, Nose: Normocephalic, atraumatic. External ears, nose normal Eyes: Conjunctivae/corneas clear. No icterus. No ptosis. Neck: Supple, no meningeal signs Oral: mask Cardiovascular: S1, S2 normal. Respiratory: Good air entry, clear to auscultation bilaterally GI: Soft, non-tender; bowel sounds normal. No peritoneal signs Musculoskeletal: No pedal edema, no cyanosis. Drain + in back. Skin: No rash or abscess Hem/Lymphatic: No palpable cervical or supraclavicular nodes. No lymphangitis Psych: Mood ok. Affect normal Neurological: Awake, alert, oriented. No gross abnormality - Constitutional Vitals: Vital Signs Temp Pulse Resp BP Pulse Ox 100.6 F H 101 H 18 141/85 98 04/20/20 11:36 04/20/20 11:36 04/20/20 11:36 04/20/20 11:36 04/20/20 11:36 Temperature -Last 24 Hours Temperature 100.6 F Temperature 99.0 F Temperature 98.4 F Temperature 98.2 F Temperature 98.9 F Temperature 98.1 F - Labs CBC & Chem 7: 04/20/20 08:33 04/20/20 08:33 Labs: Abnormal lab results 04/20/20 04/20/20 Range/Units 08:33 08:33 Hgb 11.2 L (11.8-15.2) gm/dl Hct 33.3 L (35.5-45.6) % MCV 71 L (84-94) fl MCH 24 L (28-32) pg RDW 18.8 H (13.2-15.2) % Creatinine 0.7 L (0.8-1.3) mg/dL
--- NOTE | 2020-04-20 14:24 | Progress Note ---
Assessment and Plan Assessment and plan: Assessment and plan; s/p CT-guided needle aspiration of abscess And drain placement per IR 04/19/2020 --Small bowel obstruction : Continue NGT/low intermittent suction as needed IV fluids. IV antibiotics Surgery following --Sepsis secondary to psoas abscess And osteomyelitis of L3 Continue IV antibiotics Follow cultures --Left psoas abscess: s/p needle aspiration and drainage tube placement Continue IV antibiotics, supportive care Follow cultures, ID following -- Lumbar (L3) vertebral osteomyelitis Status post incision drainage Awaiting records from an outside hospital Closely monitor the patient and adjust management as needed Consults and recommendations noted and appreciated Plan of care reviewed with the patient and his nurse History Interval history: I have seen and examined the patient at bedside Patient's chart and medications reviewed Small bowel obstruction resolved NG tube removed started on clear liquids Patient feels better no new complaints Hospitalist Physical - Constitutional Vitals: Temp Pulse Resp BP Pulse Ox 100.6 F H 101 H 18 141/85 98 04/20/20 11:36 04/20/20 11:36 04/20/20 11:36 04/20/20 11:36 04/20/20 11:36 General appearance: Present: no acute distress, well-nourished - EENT Eyes: Present: PERRL, EOM intact - Neck Neck: Present: supple, normal ROM - Respiratory Respiratory effort: normal Respiratory: bilateral: diminished, negative: rales, rhonchi - Cardiovascular Rhythm: regular Heart Sounds: Present: S1 & S2 - Extremities Extremities: no ischemia, No edema - Abdominal General gastrointestinal: soft, non-tender, non-distended, normal bowel sounds - Integumentary Integumentary: Present: clear, warm - Psychiatric Psychiatric: appropriate mood/affect, cooperative - Neurologic Neurologic: moves all extremities Results - Labs CBC & Chem 7: 04/20/20 08:33 04/20/20 08:33 Labs: Laboratory Last Values WBC 9.3 K/mm3 (4.5-11.0) 04/20/20 08:33 RBC 4.71 M/mm3 (3.65-5.03) 04/20/20 08:33 Hgb 11.2 gm/dl (11.8-15.2) L 04/20/20 08:33 Hct 33.3 % (35.5-45.6) L 04/20/20 08:33 MCV 71 fl (84-94) L 04/20/20 08:33 MCH 24 pg (28-32) L 04/20/20 08:33 MCHC 34 % (32-34) 04/20/20 08:33 RDW 18.8 % (13.2-15.2) H 04/20/20 08:33 Plt Count 366 K/mm3 (140-440) 04/20/20 08:33 Lymph % (Auto) 6.6 % (13.4-35.0) L 04/19/20 04:52 [place] % (Auto) 4.7 % (0.0-7.3) 04/19/20 04:52 Eos % (Auto) 0.1 % (0.0-4.3) 04/19/20 04:52 Baso % (Auto) 0.1 % (0.0-1.8) 04/19/20 04:52 Lymph # (Auto) 0.8 K/mm3 (1.2-5.4) L 04/19/20 04:52 [place] # (Auto) 0.6 K/mm3 (0.0-0.8) 04/19/20 04:52 Eos # (Auto) 0.0 K/mm3 (0.0-0.4) 04/19/20 04:52 Baso # (Auto) 0.0 K/mm3 (0.0-0.1) 04/19/20 04:52 Seg Neutrophils % 88.5 % (40.0-70.0) H 04/19/20 04:52 Seg Neutrophils # 10.9 K/mm3 (1.8-7.7) H 04/19/20 04:52 Sodium 140 mmol/L (137-145) 04/20/20 08:33 Potassium 3.6 mmol/L (3.6-5.0) 04/20/20 08:33 Chloride 100.1 mmol/L (98-107) 04/20/20 08:33 Carbon Dioxide 25 mmol/L (22-30) 04/20/20 08:33 Anion Gap 19 mmol/L 04/20/20 08:33 BUN 12 mg/dL (9-20) 04/20/20 08:33 Creatinine 0.7 mg/dL (0.8-1.3) L 04/20/20 08:33 Estimated GFR > 60 ml/min 04/20/20 08:33 BUN/Creatinine Ratio 17 % 04/20/20 08:33 Glucose 79 mg/dL (75-100) 04/20/20 08:33 Hemoglobin A1c 5.6 % (4-6) 04/18/20 09:10 Lactic Acid 0.90 mmol/L (0.7-2.0) 04/19/20 04:52 Calcium 9.0 mg/dL (8.4-10.2) 04/20/20 08:33 Phosphorus 3.50 mg/dL (2.5-4.5) 04/20/20 08:33 Magnesium 1.70 mg/dL (1.7-2.3) 04/20/20 08:33 Total Bilirubin 0.20 mg/dL (0.1-1.2) 04/17/20 23:08 AST 24 units/L (5-40) 04/17/20 23:08 ALT 24 units/L (7-56) 04/17/20 23:08 Alkaline Phosphatase 90 units/L (35-129) 04/17/20 23:08 Total Protein 8.1 g/dL (6.3-8.2) 04/17/20 23:08 Albumin 4.5 g/dL (3.9-5) 04/17/20 23:08 Albumin/Globulin Ratio 1.3 % 04/17/20 23:08 Triglycerides 36 mg/dL (2-149) 04/18/20 09:10 Cholesterol 89 mg/dL (50-199) 04/18/20 09:10 LDL Cholesterol Direct 38 mg/dL (50-130) L 04/18/20 09:10 HDL Cholesterol 48 mg/dL (40-59) 04/18/20 09:10 Cholesterol/HDL Ratio 1.85 % 04/18/20 09:10 Lipase 9 units/L (13-60) L 04/17/20 23:08 Urine Color Yellow (Yellow) 04/18/20 00:40 Urine Turbidity Slightly-cloudy (Clear) 04/18/20 00:40 Urine pH 5.0 (5.0-7.0) 04/18/20 00:40 Ur Specific [place] 1.017 (1.003-1.030) 04/18/20 00:40 Urine Protein 30 mg/dl mg/dL (Negative) 04/18/20 00:40 Urine Glucose (UA) Neg mg/dL (Negative) 04/18/20 00:40 Urine Ketones 20 mg/dL (Negative) 04/18/20 00:40 Urine Blood Neg (Negative) 04/18/20 00:40 Urine Nitrite Neg (Negative) 04/18/20 00:40 Urine Bilirubin Neg (Negative) 04/18/20 00:40 Urine Urobilinogen < 2.0 mg/dL (<2.0) 04/18/20 00:40 Ur Leukocyte Esterase Neg (Negative) 04/18/20 00:40 Urine WBC (Auto) 2.0 /HPF (0.0-6.0) 04/18/20 00:40 Urine RBC (Auto) < 1.0 /HPF (0.0-6.0) 04/18/20 00:40 U Epithel Cells (Auto) < 1.0 /HPF (0-13.0) 04/18/20 00:40 Urine Mucus Few /HPF 04/18/20 00:40 HIV 1&2 Antibody Rapid Non react (Non React) 04/19/20 04:52 HIV P24 Antigen Non react (Non React) 04/19/20 04:52 Blood Type O POSITIVE 04/20/20 13:09 Antibody Screen Negative 04/20/20 13:09 Microbiology: Microbiology 04/18/20 18:47 Peripheral/Venous Blood Culture - Preliminary NO GROWTH AFTER 24 HOURS 04/18/20 16:55 Peripheral/Venous Blood Culture - Preliminary NO GROWTH AFTER 24 HOURS [place]/IV: Voiding Method Urinal Active Medications - Current Medications Current Medications: Generic Name Dose Route Start Last Admin Trade Name Freq PRN Reason Stop Dose Admin Acetaminophen 650 mg 04/18/20 08:00 04/20/20 11:47 Acetaminophen 325 Mg Tab PO 650 mg Q4H PRN Administration Pain MILD(1-3)/Fever >100.5/MANZANARES Albuterol 2.5 mg 04/18/20 08:00 Albuterol 2.5 Mg/3 Ml Nebu IH Q4HRT PRN Shortness Of Breath Bisacodyl 10 mg 04/18/20 10:00 04/19/20 17:41 Bisacodyl 10 Mg Rect Supp MT Not Given QDAY ALFONSO Dextrose 50 ml 04/18/20 08:00 Dextrose 50% In Water (25gm) 50 Ml Syringe IV Q30MIN PRN Hypoglycemia Protocol Ethambutol HCl 1,200 mg 04/20/20 15:00 Ethambutol 400 Mg Tab PO QDAY ALFONSO Vancomycin HCl 1 gm in 250 mls @ 166.667 mls/hr 04/20/20 03:00 04/20/20 06:00 Vancomycin/Ns 1 Gm/250 Ml IV Infused Q12H ALFONSO Infusion Cefepime HCl 2 gm in 100 mls @ 200 mls/hr 04/19/20 22:00 04/20/20 11:44 Cefepime/Ns 2 Gm/100 Ml IV 200 mls/hr Q12HR ALFONSO Administration Protocol Potassium Chloride/Dextrose/Sod Cl 20 meq in 1,000 mls @ 125 mls/hr 04/20/20 11:00 04/20/20 11:46 D5w/Ns W/Kcl 20meq IV 125 mls/hr DIRECT ALFONSO Administration Isoniazid 300 mg 04/20/20 15:00 Isoniazid 300 Mg Tab PO QDAY [facility] Morphine Sulfate 2 mg 04/18/20 08:30 04/20/20 02:32 Morphine 2 Mg/1 Ml Inj IV 2 mg Q4H PRN Administration Pain , Severe (7-10) Naloxone HCl 0.1 mg 04/18/20 08:00 Naloxone 0.4 Mg/1 Ml Inj IV Q2MIN PRN Res Rate </= 8 or 02 SAT < 92% Ondansetron HCl 4 mg 04/18/20 08:00 04/18/20 22:41 Ondansetron 4 Mg/2 Ml Inj IV 4 mg Q4H PRN Administration Nausea And Vomiting Phenol 1 spray 04/18/20 20:43 04/19/20 22:09 Phenol 1.4% 177 Ml Bottle MM 1 spray PRN PRN Administration Sore Throat Pyrazinamide 1,500 mg 04/20/20 15:00 Pyrazinamide 500 Mg Tab PO QDAY [facility] Pyridoxine HCl 50 mg 04/21/20 10:00 Pyridoxine 50 Mg Tab PO QDAY ALFONSO Rifampin 600 mg 04/20/20 15:00 Rifampin 300 Mg Cap PO QDAY ALFONSO Sodium Chloride 10 ml 04/18/20 10:00 04/20/20 11:46 Sodium Chloride 0.9% 10 Ml Flush Syringe IV 10 ml BID ALFONSO Administration Sodium Chloride 10 ml 04/18/20 08:00 Sodium Chloride 0.9% 10 Ml Flush Syringe IV PRN PRN LINE FLUSH Nutrition/Malnutrition Assess - Dietary Evaluation Nutrition/Malnutrition Findings: Nutrition Notes Start: 04/18/20 08:17 Freq: Status: Active Protocol: Document 04/20/20 09:05 LP (Rec: 04/20/20 09:14 LP [id number]) Nutrition Notes Initial or Follow up Brief Note Current Diagnosis Sepsis,Small Bowel Obstruction Other Pertinent Diagnosis psoas abscess Current Diet NPO Labs/Tests NS at 125ml/hr Pertinent Medications Reviewed Height 5 ft 8 in Weight 59.3 kg [place] Body Weight (kg) 70.00 BMI 19.8 Weight Status Appropriate Subjective/Other Information Pt remains NPO, has NGT to LIS . Nutrition Intervention Follow-Up By: 04/22/20 Additional Comments Follow for diet advancement
[2020-04-20] MEDS: ETHAMBUTOL 400 MG TAB PO SCH (14:27)
[2020-04-20] MEDS: PYRAZINAMIDE 500 MG TAB PO SCH (14:28)
[2020-04-20] MEDS: rifAMPin 300 MG CAP PO SCH (14:28)
[2020-04-20] MEDS: ISONIAZID 300 MG TAB PO SCH (14:41)
[2020-04-21] MEDS: MORPHINE 2 MG/1 ML INJ IV PRN (02:31)
[2020-04-21] MEDS: D5NS W/KCL 20 MEQ 20 MEQ/1,000 ML BAG IV SCH ×2 (02:31→15:43)
[2020-04-21] MEDS: VANCOMYCIN/NS 1 GM/250 ML 1 GM/250 ML BAG IV SCH (03:05)
[2020-04-21 04:56] LABS: Blood Urea Nitrogen 4 mg/dL (9-20); Hemolysis Index 2
[2020-04-21 05:10] LABS: BUN/Creatinine Ratio 13
[2020-04-21] MEDS: CEFEPIME/NS 2 GM/100 ML 2 GM/100 ML BAG IV SCH ×2 (09:02→21:48)
[2020-04-21] MEDS: rifAMPin 300 MG CAP PO SCH (09:03)
[2020-04-21] MEDS: ETHAMBUTOL 400 MG TAB PO SCH (09:07)
[2020-04-21] MEDS: PYRAZINAMIDE 500 MG TAB PO SCH (09:09)
[2020-04-21] MEDS: ISONIAZID 300 MG TAB PO SCH (09:10)
[2020-04-21] MEDS: PYRIDOXINE 50 MG TAB PO SCH (09:10)
[2020-04-21] MEDS ORDERED: POTASSIUM CHLORIDE ER 20 MEQ TAB PO ONE (10:32)
[2020-04-21 11:08] LABS: Blood Urea Nitrogen 5 mg/dL (9-20); Calcium 8.9 mg/dL (8.4-10.2); Hemolysis Index 3
[2020-04-21 11:09] LABS: BUN/Creatinine Ratio 8
--- NOTE | 2020-04-21 11:39 | Progress Note ---
Assessment and Plan 19-year-old male with 1. SBO - resolved 2. Left psoas abscess s/p IR drainage 3. Lumbar (L3) vertebral osteomyelitis L3 bone bx at [place] - results reviewed - only adipose tissue and muscle in sample, no bone. Nondiagnostic Plan: 1. adv to soft diet 2. dc IVF 3. abx per ID. cultures pending 4. continue L psoas IR drain - will likely be dced with drain and reimaging per ID as outpatient. Pt already established with Dr. Boles 5. will s/o Thank you for this consultation. Please call with any questions or concerns. Subjective Date of service: 04/21/20 Narrative: Pt seen and examined. No complaints. Tolerating liquid diet. Had multiple BMs. + Flatus. No n/v. No f/c Objective Vital Signs - 12hr 04/20/20 04/21/20 04/21/20 23:52 00:15 04:07 Temperature 98.9 F 97.6 F Pulse Rate 95 H 82 Respiratory 18 17 18 Rate Respiratory Rate [abd] Blood Pressure Blood Pressure 112/78 [Left] Blood Pressure 104/62 [Right] O2 Sat by Pulse 95 100 Oximetry 04/21/20 04/21/20 04/21/20 07:35 10:00 10:10 Temperature 98.2 F Pulse Rate 73 Respiratory 16 18 Rate Respiratory 20 Rate [abd] Blood Pressure 119/66 Blood Pressure [Left] Blood Pressure [Right] O2 Sat by Pulse 100 Oximetry - General physical appearance Narrative Exam: Gen: AAOx3. NAD CV: s1, S2+ Resp: even and unlabored Abd: soft, NT, ND. LLQ drain with serosang drainage Ext: no c/c/e - Labs 04/20/20 08:33 04/21/20 10:32 Diabetes panel 04/21/20 04/21/20 Range/Units 04:01 10:32 Sodium 143 138 (137-145) mmol/L Potassium 3.2 L 3.8 (3.6-5.0) mmol/L Chloride 118.4 H 100.7 (98-107) mmol/L Carbon Dioxide 19 L 28 D (22-30) mmol/L BUN 4 L 5 L (9-20) mg/dL Creatinine 0.3 L D 0.6 L D (0.8-1.3) mg/dL Glucose 187 H 89 (75-100) mg/dL Calcium 8.0 L 8.9 (8.4-10.2) mg/dL Calcium panel 04/21/20 04/21/20 Range/Units 04:01 10:32 Calcium 8.0 L 8.9 (8.4-10.2) mg/dL Pituitary panel 04/21/20 04/21/20 Range/Units 04:01 10:32 Sodium 143 138 (137-145) mmol/L Potassium 3.2 L 3.8 (3.6-5.0) mmol/L Chloride 118.4 H 100.7 (98-107) mmol/L Carbon Dioxide 19 L 28 D (22-30) mmol/L BUN 4 L 5 L (9-20) mg/dL Creatinine 0.3 L D 0.6 L D (0.8-1.3) mg/dL Glucose 187 H 89 (75-100) mg/dL Calcium 8.0 L 8.9 (8.4-10.2) mg/dL Adrenal panel 04/21/20 04/21/20 Range/Units 04:01 10:32 Sodium 143 138 (137-145) mmol/L Potassium 3.2 L 3.8 (3.6-5.0) mmol/L Chloride 118.4 H 100.7 (98-107) mmol/L Carbon Dioxide 19 L 28 D (22-30) mmol/L BUN 4 L 5 L (9-20) mg/dL Creatinine 0.3 L D 0.6 L D (0.8-1.3) mg/dL Glucose 187 H 89 (75-100) mg/dL Calcium 8.0 L 8.9 (8.4-10.2) mg/dL
--- NOTE | 2020-04-21 12:29 | Progress Note ---
Assessment and Plan Cultures: 04/18/2020 blood culture: no growth HIV: Nonreactive 04/19/2020 IR drainage culture: no growth A/P: 19/M who is originally from [place], moved here at age 1, denies substance abuse admitted with: #L3 lumbar spinal osteomyelitis, left psoas abscess: Seems to be a subacute/chronic process, has undergone outpatient work-up over the last 8 months. He was seen by [place] [facility]ology who obtained an MRI of the lumbar spine which showed a complex cystic mass around the lumbar spinal region for which he underwent an IR guided biopsy on 04/14/2020 as an outpatient. Apparently, purulent fluid was aspirated there. Bone Biopsy results from [place] reviewed, "multiple fragments of benign skeletal muscle and fibroadipose tissue", it seems there were no cultures sent Underwent IR drainage, about 60 mL of seropurulent material was aspirated, 8 [place] drain was placed. #SBO: Gen Surg following. Unexplained etiology, patient without h/o prior abdominal surgery. ?TB related adhesions. #Leucocytosis, thrombocytosis secondary to above: improving. 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 No history of treatment. D/W patient's father. Recs: -continue empiric cefepime and vancomycin till cultures negative -f/u bacterial, fungal and AFB cultures from IR drainage here -bone biopsy from [place] not helpful, seems like a sampling error -continue RIPE therapy -called pathology lab to add AFB and fungal stains to cytology d/w patient and his father on the phone. [place] results not useful. We will have to rely on the cultures obtained here. If bacterial cultures are negative, will d/c abx and discharge patient on TB treatment and follow up outpatient with repeat interval imaging. Jose Motley MD, FACP [facility] ([facility] O: [phone] F: [phone] Subjective Date of service: 04/21/20 Interval history: No fever. No vomiting. Feels well. Spoke to his dad on the phone. Objective - Exam Narrative Exam: Physical Exam: Constitutional: Alert, cooperative. No acute distress Head, Ears, Nose: Normocephalic, atraumatic. External ears, nose normal Eyes: Conjunctivae/corneas clear. No icterus. No ptosis. Neck: Supple, no meningeal signs Oral: mask Cardiovascular: S1, S2 normal. Respiratory: Good air entry, clear to auscultation bilaterally GI: Soft, non-tender; bowel sounds normal. No peritoneal signs Musculoskeletal: No pedal edema, no cyanosis. Drain + in back. Skin: No rash or abscess Hem/Lymphatic: No palpable cervical or supraclavicular nodes. No lymphangitis Psych: Mood ok. Affect normal Neurological: Awake, alert, oriented. No gross abnormality - Constitutional Vitals: Vital Signs Temp Pulse Resp BP Pulse Ox 98.2 F 73 18 119/66 100 04/21/20 07:35 04/21/20 07:35 04/21/20 10:10 04/21/20 07:35 04/21/20 07:35 Temperature -Last 24 Hours Temperature 98.2 F Temperature 97.6 F Temperature 98.9 F Temperature 98.2 F Temperature 98.6 F - Labs CBC & Chem 7: 04/20/20 08:33 04/21/20 10:32 Labs: Abnormal lab results 04/21/20 04/21/20 04/21/20 Range/Units 04:01 04:01 10:32 Potassium 3.2 L (3.6-5.0) mmol/L Chloride 118.4 H (98-107) mmol/L Carbon Dioxide 19 L (22-30) mmol/L BUN 4 L 5 L (9-20) mg/dL Creatinine 0.3 L D 0.6 L D (0.8-1.3) mg/dL Glucose 187 H (75-100) mg/dL Calcium 8.0 L (8.4-10.2) mg/dL Vancomycin Trough 130.7 H (5.0-20.0) ug/mL
[2020-04-21] MEDS: VANCOMYCIN 1,250 MG in SODIUM CHLORIDE 0.9% 250ML 250 ML IV SCH (14:40)
--- NOTE | 2020-04-21 18:22 | Progress Note ---
Assessment and Plan Assessment and plan: s/p CT-guided needle aspiration of abscess And drain placement per IR 04/19/2020 --Small bowel obstruction : Continue NGT/low intermittent suction as needed IV fluids. 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; TB work-up in progress per ID Continue RIPE therapy Medical records from [place] reviewed by ID Closely monitor the patient and adjust management as needed Consults and recommendations noted and appreciated Plan of care reviewed with the patient and his nurse History Interval history: I have seen the patient and examined at the bedside Patient's chart and medications reviewed Patient is anxious to go home Complains of generalized weakness Vital signs noted Hospitalist Physical - Constitutional Vitals: Temp Pulse Resp BP Pulse Ox 98.2 F 96 H 16 118/71 98 04/21/20 12:06 04/21/20 12:06 04/21/20 12:06 04/21/20 12:06 04/21/20 12:06 General appearance: Present: no acute distress, well-nourished - EENT Eyes: Present: PERRL, EOM intact - Neck Neck: Present: supple, normal ROM - Respiratory Respiratory effort: normal Respiratory: bilateral: diminished, negative: rales, rhonchi, wheezing - Cardiovascular Rhythm: regular Heart Sounds: Present: S1 & S2 - Extremities Extremities: no ischemia, No edema - Abdominal General gastrointestinal: soft, non-tender, non-distended, normal bowel sounds - Integumentary Integumentary: Present: clear - Psychiatric Psychiatric: appropriate mood/affect, cooperative - Neurologic Neurologic: moves all extremities Results - Labs CBC & Chem 7: 04/20/20 08:33 04/21/20 10:32 Labs: Laboratory Last Values WBC 9.3 K/mm3 (4.5-11.0) 04/20/20 08:33 RBC 4.71 M/mm3 (3.65-5.03) 04/20/20 08:33 Hgb 11.2 gm/dl (11.8-15.2) L 04/20/20 08:33 Hct 33.3 % (35.5-45.6) L 04/20/20 08:33 MCV 71 fl (84-94) L 04/20/20 08:33 MCH 24 pg (28-32) L 04/20/20 08:33 MCHC 34 % (32-34) 04/20/20 08:33 RDW 18.8 % (13.2-15.2) H 04/20/20 08:33 Plt Count 366 K/mm3 (140-440) 04/20/20 08:33 Lymph % (Auto) 6.6 % (13.4-35.0) L 04/19/20 04:52 [place] % (Auto) 4.7 % (0.0-7.3) 04/19/20 04:52 Eos % (Auto) 0.1 % (0.0-4.3) 04/19/20 04:52 Baso % (Auto) 0.1 % (0.0-1.8) 04/19/20 04:52 Lymph # (Auto) 0.8 K/mm3 (1.2-5.4) L 04/19/20 04:52 [place] # (Auto) 0.6 K/mm3 (0.0-0.8) 04/19/20 04:52 Eos # (Auto) 0.0 K/mm3 (0.0-0.4) 04/19/20 04:52 Baso # (Auto) 0.0 K/mm3 (0.0-0.1) 04/19/20 04:52 Seg Neutrophils % 88.5 % (40.0-70.0) H 04/19/20 04:52 Seg Neutrophils # 10.9 K/mm3 (1.8-7.7) H 04/19/20 04:52 Sodium 138 mmol/L (137-145) 04/21/20 10:32 Potassium 3.8 mmol/L (3.6-5.0) 04/21/20 10:32 Chloride 100.7 mmol/L (98-107) 04/21/20 10:32 Carbon Dioxide 28 mmol/L (22-30) D 04/21/20 10:32 Anion Gap 13 mmol/L 04/21/20 10:32 BUN 5 mg/dL (9-20) L 04/21/20 10:32 Creatinine 0.6 mg/dL (0.8-1.3) L D 04/21/20 10:32 Estimated GFR > 60 ml/min 04/21/20 10:32 BUN/Creatinine Ratio 8 % 04/21/20 10:32 Glucose 89 mg/dL (75-100) 04/21/20 10:32 Hemoglobin A1c 5.6 % (4-6) 04/18/20 09:10 Lactic Acid 0.90 mmol/L (0.7-2.0) 04/19/20 04:52 Calcium 8.9 mg/dL (8.4-10.2) 04/21/20 10:32 Phosphorus 3.50 mg/dL (2.5-4.5) 04/20/20 08:33 Magnesium 1.70 mg/dL (1.7-2.3) 04/20/20 08:33 Total Bilirubin 0.20 mg/dL (0.1-1.2) 04/17/20 23:08 AST 24 units/L (5-40) 04/17/20 23:08 ALT 24 units/L (7-56) 04/17/20 23:08 Alkaline Phosphatase 90 units/L (35-129) 04/17/20 23:08 Total Protein 8.1 g/dL (6.3-8.2) 04/17/20 23:08 Albumin 4.5 g/dL (3.9-5) 04/17/20 23:08 Albumin/Globulin Ratio 1.3 % 04/17/20 23:08 Triglycerides 36 mg/dL (2-149) 04/18/20 09:10 Cholesterol 89 mg/dL (50-199) 04/18/20 09:10 LDL Cholesterol Direct 38 mg/dL (50-130) L 04/18/20 09:10 HDL Cholesterol 48 mg/dL (40-59) 04/18/20 09:10 Cholesterol/HDL Ratio 1.85 % 04/18/20 09:10 Lipase 9 units/L (13-60) L 04/17/20 23:08 Urine Color Yellow (Yellow) 04/18/20 00:40 Urine Turbidity Slightly-cloudy (Clear) 04/18/20 00:40 Urine pH 5.0 (5.0-7.0) 04/18/20 00:40 Ur Specific [place] 1.017 (1.003-1.030) 04/18/20 00:40 Urine Protein 30 mg/dl mg/dL (Negative) 04/18/20 00:40 Urine Glucose (UA) Neg mg/dL (Negative) 04/18/20 00:40 Urine Ketones 20 mg/dL (Negative) 04/18/20 00:40 Urine Blood Neg (Negative) 04/18/20 00:40 Urine Nitrite Neg (Negative) 04/18/20 00:40 Urine Bilirubin Neg (Negative) 04/18/20 00:40 Urine Urobilinogen < 2.0 mg/dL (<2.0) 04/18/20 00:40 Ur Leukocyte Esterase Neg (Negative) 04/18/20 00:40 Urine WBC (Auto) 2.0 /HPF (0.0-6.0) 04/18/20 00:40 Urine RBC (Auto) < 1.0 /HPF (0.0-6.0) 04/18/20 00:40 U Epithel Cells (Auto) < 1.0 /HPF (0-13.0) 04/18/20 00:40 Urine Mucus Few /HPF 04/18/20 00:40 Vancomycin Trough 8.5 ug/mL (5.0-20.0) 04/21/20 10:32 HIV 1&2 Antibody Rapid Non react (Non React) 04/19/20 04:52 HIV P24 Antigen Non react (Non React) 04/19/20 04:52 AFB Identification 04/19/20 Unknown Fungal Id Prelim 04/19/20 Unknown Blood Type O POSITIVE 04/20/20 13:09 Antibody Screen Negative 04/20/20 13:09 Microbiology: Microbiology 04/18/20 16:55 Peripheral/Venous Blood Culture - Preliminary NO GROWTH AFTER 72 HOURS 04/18/20 18:47 Peripheral/Venous Blood Culture - Preliminary NO GROWTH AFTER 48 HOURS 04/19/20 Unknown Abdomen Surgical Culture - Preliminary Campbell/IV: Voiding Method Urinal Active Medications - Current Medications Current Medications: Generic Name Dose Route Start Last Admin Trade Name Freq PRN Reason Stop Dose Admin Acetaminophen 650 mg 04/18/20 08:00 04/20/20 11:47 Acetaminophen 325 Mg Tab PO 650 mg Q4H PRN Administration Pain MILD(1-3)/Fever >100.5/MANZANARES Albuterol 2.5 mg 04/18/20 08:00 Albuterol 2.5 Mg/3 Ml Nebu IH Q4HRT PRN Shortness Of Breath Bisacodyl 10 mg 04/18/20 10:00 04/21/20 09:15 Bisacodyl 10 Mg Rect Supp AR Not Given QDAY ALFONSO Dextrose 50 ml 04/18/20 08:00 Dextrose 50% In Water (25gm) 50 Ml Syringe IV Q30MIN PRN Hypoglycemia Protocol Ethambutol HCl 1,200 mg 04/20/20 15:00 04/21/20 09:07 Ethambutol 400 Mg Tab PO 1,200 mg QDAY ALFONSO Administration Cefepime HCl 2 gm in 100 mls @ 200 mls/hr 04/19/20 22:00 04/21/20 09:02 Cefepime/Ns 2 Gm/100 Ml IV 200 mls/hr Q12HR ALFONSO Administration Protocol Potassium Chloride/Dextrose/Sod Cl 20 meq in 1,000 mls @ 125 mls/hr 04/20/20 11:00 04/21/20 15:43 D5w/Ns W/Kcl 20meq IV 125 mls/hr DIRECT ALFONSO Administration Vancomycin HCl 1,250 mg/ 275 mls @ 166.667 mls/hr 04/21/20 15:00 04/21/20 14:40 Sodium Chloride IV 166.667 mls/hr Q12H ALFONSO Administration Isoniazid 300 mg 04/20/20 15:00 04/21/20 09:10 Isoniazid 300 Mg Tab PO 300 mg QDAY ALFONSO Administration Morphine Sulfate 2 mg 04/18/20 08:30 04/21/20 02:31 Morphine 2 Mg/1 Ml Inj IV 2 mg Q4H PRN Administration Pain , Severe (7-10) Naloxone HCl 0.1 mg 04/18/20 08:00 Naloxone 0.4 Mg/1 Ml Inj IV Q2MIN PRN Res Rate </= 8 or 02 SAT < 92% Ondansetron HCl 4 mg 04/18/20 08:00 04/18/20 22:41 Ondansetron 4 Mg/2 Ml Inj IV 4 mg Q4H PRN Administration Nausea And Vomiting Phenol 1 spray 04/18/20 20:43 04/19/20 22:09 Phenol 1.4% 177 Ml Bottle MM 1 spray PRN PRN Administration Sore Throat Pyrazinamide 1,500 mg 04/20/20 15:00 04/21/20 09:09 Pyrazinamide 500 Mg Tab PO 1,500 mg QDAY ALFONSO Administration Pyridoxine HCl 50 mg 04/21/20 10:00 04/21/20 09:10 Pyridoxine 50 Mg Tab PO 50 mg QDAY ALFONSO Administration Rifampin 600 mg 04/20/20 15:00 04/21/20 09:03 Rifampin 300 Mg Cap PO 600 mg QDAY ALFONSO Administration Sodium Chloride 10 ml 04/18/20 10:00 04/21/20 09:12 Sodium Chloride 0.9% 10 Ml Flush Syringe IV 10 ml BID ALFONSO Administration Sodium Chloride 10 ml 04/18/20 08:00 Sodium Chloride 0.9% 10 Ml Flush Syringe IV PRN PRN LINE FLUSH Nutrition/Malnutrition Assess - Dietary Evaluation Nutrition/Malnutrition Findings: Nutrition Notes Start: 04/18/20 08:17 Freq: Status: Active Protocol: Document 04/20/20 09:05 LP (Rec: 04/20/20 09:14 LP [id number]) Nutrition Notes Initial or Follow up Brief Note Current Diagnosis Sepsis,Small Bowel Obstruction Other Pertinent Diagnosis psoas abscess Current Diet NPO Labs/Tests NS at 125ml/hr Pertinent Medications Reviewed Height 5 ft 8 in Weight 59.3 kg [place] Body Weight (kg) 70.00 BMI 19.8 Weight Status Appropriate Subjective/Other Information Pt remains NPO, has NGT to LIS . Nutrition Intervention Follow-Up By: 04/22/20 Additional Comments Follow for diet advancement
[2020-04-22] MEDS: VANCOMYCIN 1,250 MG in SODIUM CHLORIDE 0.9% 250ML 250 ML IV SCH ×2 (02:15→15:46)
[2020-04-22] MEDS: CEFEPIME/NS 2 GM/100 ML 2 GM/100 ML BAG IV SCH ×2 (09:58→21:32)
[2020-04-22] MEDS: ETHAMBUTOL 400 MG TAB PO SCH (10:00)
[2020-04-22] MEDS: ISONIAZID 300 MG TAB PO SCH (10:00)
[2020-04-22] MEDS: rifAMPin 300 MG CAP PO SCH (10:00)
[2020-04-22] MEDS: PYRAZINAMIDE 500 MG TAB PO SCH (10:00)
[2020-04-22] MEDS: PYRIDOXINE 50 MG TAB PO SCH (10:00)
--- NOTE | 2020-04-22 10:04 | Progress Note ---
Assessment and Plan Assessment and plan: s/p CT-guided needle aspiration of abscess And drain placement per IR 04/19/2020 --Small bowel obstruction : Continue NGT/low intermittent suction as needed IV fluids. 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; TB work-up in progress per ID Continue RIPE therapy Medical records from [place] reviewed by ID Closely monitor the patient and adjust management as needed Consults and recommendations noted and appreciated Plan of care reviewed with the patient and his nurse History Interval history: I seen and examined the patient at the bedside Patient's parents are in the room He feels better mild pain at the site of the drain Vital signs noted Hospitalist Physical - Constitutional Vitals: Temp Pulse Resp BP Pulse Ox 98.5 F 86 18 115/70 100 04/22/20 08:04 04/22/20 08:04 04/22/20 08:04 04/22/20 08:04 04/22/20 08:04 General appearance: Present: no acute distress, well-nourished - EENT Eyes: Present: PERRL, EOM intact - Neck Neck: Present: supple, normal ROM - Respiratory Respiratory effort: normal Respiratory: bilateral: diminished, rhonchi, negative: rales, wheezing - Cardiovascular Rhythm: regular Heart Sounds: Present: S1 & S2 - Extremities Extremities: no ischemia, No edema - Abdominal General gastrointestinal: soft, non-tender, non-distended, normal bowel sounds - Integumentary Integumentary: Present: clear, warm - Psychiatric Psychiatric: appropriate mood/affect, cooperative - Neurologic Neurologic: moves all extremities Results - Labs CBC & Chem 7: 04/20/20 08:33 04/21/20 10:32 Labs: Laboratory Last Values WBC 9.3 K/mm3 (4.5-11.0) 04/20/20 08:33 RBC 4.71 M/mm3 (3.65-5.03) 04/20/20 08:33 Hgb 11.2 gm/dl (11.8-15.2) L 04/20/20 08:33 Hct 33.3 % (35.5-45.6) L 04/20/20 08:33 MCV 71 fl (84-94) L 04/20/20 08:33 MCH 24 pg (28-32) L 04/20/20 08:33 MCHC 34 % (32-34) 04/20/20 08:33 RDW 18.8 % (13.2-15.2) H 04/20/20 08:33 Plt Count 366 K/mm3 (140-440) 04/20/20 08:33 Lymph % (Auto) 6.6 % (13.4-35.0) L 04/19/20 04:52 [place] % (Auto) 4.7 % (0.0-7.3) 04/19/20 04:52 Eos % (Auto) 0.1 % (0.0-4.3) 04/19/20 04:52 Baso % (Auto) 0.1 % (0.0-1.8) 04/19/20 04:52 Lymph # (Auto) 0.8 K/mm3 (1.2-5.4) L 04/19/20 04:52 [place] # (Auto) 0.6 K/mm3 (0.0-0.8) 04/19/20 04:52 Eos # (Auto) 0.0 K/mm3 (0.0-0.4) 04/19/20 04:52 Baso # (Auto) 0.0 K/mm3 (0.0-0.1) 04/19/20 04:52 Seg Neutrophils % 88.5 % (40.0-70.0) H 04/19/20 04:52 Seg Neutrophils # 10.9 K/mm3 (1.8-7.7) H 04/19/20 04:52 Sodium 138 mmol/L (137-145) 04/21/20 10:32 Potassium 3.8 mmol/L (3.6-5.0) 04/21/20 10:32 Chloride 100.7 mmol/L (98-107) 04/21/20 10:32 Carbon Dioxide 28 mmol/L (22-30) D 04/21/20 10:32 Anion Gap 13 mmol/L 04/21/20 10:32 BUN 5 mg/dL (9-20) L 04/21/20 10:32 Creatinine 0.6 mg/dL (0.8-1.3) L D 04/21/20 10:32 Estimated GFR > 60 ml/min 04/21/20 10:32 BUN/Creatinine Ratio 8 % 04/21/20 10:32 Glucose 89 mg/dL (75-100) 04/21/20 10:32 POC Glucose 102 mg/dL (70-105) 04/21/20 21:06 Hemoglobin A1c 5.6 % (4-6) 04/18/20 09:10 Lactic Acid 0.90 mmol/L (0.7-2.0) 04/19/20 04:52 Calcium 8.9 mg/dL (8.4-10.2) 04/21/20 10:32 Phosphorus 3.50 mg/dL (2.5-4.5) 04/20/20 08:33 Magnesium 1.70 mg/dL (1.7-2.3) 04/20/20 08:33 Total Bilirubin 0.20 mg/dL (0.1-1.2) 04/17/20 23:08 AST 24 units/L (5-40) 04/17/20 23:08 ALT 24 units/L (7-56) 04/17/20 23:08 Alkaline Phosphatase 90 units/L (35-129) 04/17/20 23:08 Total Protein 8.1 g/dL (6.3-8.2) 04/17/20 23:08 Albumin 4.5 g/dL (3.9-5) 04/17/20 23:08 Albumin/Globulin Ratio 1.3 % 04/17/20 23:08 Triglycerides 36 mg/dL (2-149) 04/18/20 09:10 Cholesterol 89 mg/dL (50-199) 04/18/20 09:10 LDL Cholesterol Direct 38 mg/dL (50-130) L 04/18/20 09:10 HDL Cholesterol 48 mg/dL (40-59) 04/18/20 09:10 Cholesterol/HDL Ratio 1.85 % 04/18/20 09:10 Lipase 9 units/L (13-60) L 04/17/20 23:08 Urine Color Yellow (Yellow) 04/18/20 00:40 Urine Turbidity Slightly-cloudy (Clear) 04/18/20 00:40 Urine pH 5.0 (5.0-7.0) 04/18/20 00:40 Ur Specific [place] 1.017 (1.003-1.030) 04/18/20 00:40 Urine Protein 30 mg/dl mg/dL (Negative) 04/18/20 00:40 Urine Glucose (UA) Neg mg/dL (Negative) 04/18/20 00:40 Urine Ketones 20 mg/dL (Negative) 04/18/20 00:40 Urine Blood Neg (Negative) 04/18/20 00:40 Urine Nitrite Neg (Negative) 04/18/20 00:40 Urine Bilirubin Neg (Negative) 04/18/20 00:40 Urine Urobilinogen < 2.0 mg/dL (<2.0) 04/18/20 00:40 Ur Leukocyte Esterase Neg (Negative) 04/18/20 00:40 Urine WBC (Auto) 2.0 /HPF (0.0-6.0) 04/18/20 00:40 Urine RBC (Auto) < 1.0 /HPF (0.0-6.0) 04/18/20 00:40 U Epithel Cells (Auto) < 1.0 /HPF (0-13.0) 04/18/20 00:40 Urine Mucus Few /HPF 04/18/20 00:40 Vancomycin Trough 8.5 ug/mL (5.0-20.0) 04/21/20 10:32 HIV 1&2 Antibody Rapid Non react (Non React) 04/19/20 04:52 HIV P24 Antigen Non react (Non React) 04/19/20 04:52 AFB Identification 04/19/20 Unknown Fungal Id Prelim 04/19/20 Unknown Blood Type O POSITIVE 04/20/20 13:09 Antibody Screen Negative 04/20/20 13:09 Microbiology: Microbiology 04/18/20 18:47 Peripheral/Venous Blood Culture - Preliminary NO GROWTH AFTER 72 HOURS 04/18/20 16:55 Peripheral/Venous Blood Culture - Preliminary NO GROWTH AFTER 72 HOURS Campbell/IV: Voiding Method Urinal Active Medications - Current Medications Current Medications: Generic Name Dose Route Start Last Admin Trade Name Freq PRN Reason Stop Dose Admin Acetaminophen 650 mg 04/18/20 08:00 04/20/20 11:47 Acetaminophen 325 Mg Tab PO 650 mg Q4H PRN Administration Pain MILD(1-3)/Fever >100.5/MANZANARES Albuterol 2.5 mg 04/18/20 08:00 Albuterol 2.5 Mg/3 Ml Nebu IH Q4HRT PRN Shortness Of Breath Bisacodyl 10 mg 04/18/20 10:00 04/22/20 10:01 Bisacodyl 10 Mg Rect Supp [place] Not Given QDAY ALFONSO Dextrose 50 ml 04/18/20 08:00 Dextrose 50% In Water (25gm) 50 Ml Syringe IV Q30MIN PRN Hypoglycemia Protocol Ethambutol HCl 1,200 mg 04/20/20 15:00 04/22/20 10:00 Ethambutol 400 Mg Tab PO 1,200 mg QDAY ALFONSO Administration Cefepime HCl 2 gm in 100 mls @ 200 mls/hr 04/19/20 22:00 04/22/20 09:58 Cefepime/Ns 2 Gm/100 Ml IV 200 mls/hr Q12HR ALFONSO Administration Protocol Potassium Chloride/Dextrose/Sod Cl 20 meq in 1,000 mls @ 125 mls/hr 04/20/20 11:00 04/21/20 15:43 D5w/Ns W/Kcl 20meq IV 125 mls/hr DIRECT ALFONSO Administration Vancomycin HCl 1,250 mg/ 275 mls @ 166.667 mls/hr 04/21/20 15:00 04/22/20 02:15 Sodium Chloride IV 166.667 mls/hr Q12H ALFONSO Administration Isoniazid 300 mg 04/20/20 15:00 04/22/20 10:00 Isoniazid 300 Mg Tab PO 300 mg QDAY ALFONSO Administration Morphine Sulfate 2 mg 04/18/20 08:30 04/21/20 02:31 Morphine 2 Mg/1 Ml Inj IV 2 mg Q4H PRN Administration Pain , Severe (7-10) Naloxone HCl 0.1 mg 04/18/20 08:00 Naloxone 0.4 Mg/1 Ml Inj IV Q2MIN PRN Res Rate </= 8 or 02 SAT < 92% Ondansetron HCl 4 mg 04/18/20 08:00 04/18/20 22:41 Ondansetron 4 Mg/2 Ml Inj IV 4 mg Q4H PRN Administration Nausea And Vomiting Phenol 1 spray 04/18/20 20:43 04/19/20 22:09 Phenol 1.4% 177 Ml Bottle MM 1 spray PRN PRN Administration Sore Throat Pyrazinamide 1,500 mg 04/20/20 15:00 04/22/20 10:00 Pyrazinamide 500 Mg Tab PO 1,500 mg QDAY ALFONSO Administration Pyridoxine HCl 50 mg 04/21/20 10:00 04/22/20 10:00 Pyridoxine 50 Mg Tab PO 50 mg QDAY ALFONSO Administration Rifampin 600 mg 04/20/20 15:00 04/22/20 10:00 Rifampin 300 Mg Cap PO 600 mg QDAY ALFONSO Administration Sodium Chloride 10 ml 04/18/20 10:00 04/22/20 10:01 Sodium Chloride 0.9% 10 Ml Flush Syringe IV 10 ml BID ALFONSO Administration Sodium Chloride 10 ml 04/18/20 08:00 Sodium Chloride 0.9% 10 Ml Flush Syringe IV PRN PRN LINE FLUSH Nutrition/Malnutrition Assess - Dietary Evaluation Nutrition/Malnutrition Findings: Nutrition Notes Start: 04/18/20 08:1 7 Freq: Status: Active Protocol: Document 04/22/20 09:48 AB (Rec: 04/22/20 09:59 AB [id number]) Co-Sign 04/22/20 09:48 MK Nutrition Notes Current Diagnosis Sepsis Other Pertinent Diagnosis psoas abscess, LTBI Current Diet GI soft/consistent CHO Labs/Tests BUN 5 Cr 0.6 Pertinent Medications Vancomyocin D5w/NS w/ Kcl at 125 ml/hr Vit B6 Height 5 ft 8 in Weight 62.1 kg [place] Body Weight (kg) 70.00 BMI 20.8 Weight change and time frame Wt gain of 5% in 4 days Weight Status Appropriate Subjective/Other Information F/U for diet advancement. Pt had SBFT on 04/20. advanced diet on 04/21. Pt stated that he has an appetite. DI observed pt breakfast meal tray eaten 100%. Pt complained of not able to have BM d/t not eating food in 4 days. Food preferences listed in chart. Percent of energy/protein needs met: 96%/100% Burn Absent Trauma Absent GI Symptoms Constipation Food Allergy No Current % PO Good (75-100%) Minimum of two criteria No physical signs of malnutrition #1 Nutrition Diagnosis Inadequate energy intake As Evidenced by Signs and Symptoms Pt diet advanced to GI soft Diagnosis Progress(for reassessment Improved documentation) Is patient on ventilator? No Is Patient Ambulatory and/or Out of Bed Yes REE-([place]-St. Jeor-ambulatory/OOB) [ 2079.650 [id number]] Calculation Used for Recommendations [facility] Additional Notes Protein needs: 47 - 59g (0.8 - 1 g/kgBW) Fluid needs: 1 ml/kcal Nutrition Intervention Change Diet Order: Continue current diet order Goal #1 Meet at least 80% of energy and protein needs via PO. Anticipated Discharge Needs: Regular diet Revisit per MD consult or patient Sign Off request:
--- NOTE | 2020-04-22 12:06 | Progress Note ---
Assessment and Plan Cultures: 04/18/2020 blood culture: no growth HIV: Nonreactive 04/19/2020 IR drainage culture: no growth AFB and fungal stains negative A/P: 19/M who is originally from [place], moved here at age 1, denies substance abuse admitted with: #L3 lumbar spinal osteomyelitis, left psoas abscess: Seems to be a subacute /chronic process, has undergone outpatient work-up over the last 8 months. He was seen by [place] [facility] who obtained an MRI of the lumbar spine which showed a complex cystic mass around the lumbar spinal region for which he underwent an IR guided biopsy on 04/14/2020 as an outpatient. Apparently, purulent fluid was aspirated there. Bone Biopsy results from [place] reviewed, "multiple f ragments of benign skeletal muscle and fibroadipose tissue", it seems there were no cultures sent. Underwent IR drainage here, about 60 mL of seropurulent material was aspirated, 8 [place] drain was placed. #SBO: Gen Surg following. Unexplained etiology, patient without h/o prior abdominal surgery. ?TB related adhesions. #Leucocytosis, thrombocytosis secondary to above: improving. 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 No history of treatment. D/W patient's father. Recs: -continue empiric cefepime and vancomycin till cultures negative -f/u bacterial, fungal and AFB cultures from IR drainage here -bone biopsy from [place] not helpful, seems like a sampling error -continue RIPE therapy -If bacterial cultures are negative, will likely d/c Cefepime + Vancomycin and discharge patient on TB treatment and follow up outpatient with repeat interval imaging. Jose Motley MD, FACP [facility] ([facility] O: [phone] F: [phone] Subjective Date of service: 04/22/20 Interval history: No fever. No vomiting. Feeling well. Keeping his meds down. Objective - Exam Narrative Exam: Physical Exam: Constitutional: Alert, cooperative. No acute distress Head, Ears, Nose: Normocephalic, atraumatic. External ears, nose normal Eyes: Conjunctivae/corneas clear. No icterus. No ptosis. Neck: Supple, no meningeal signs Oral: mask Cardiovascular: S1, S2 normal. Respiratory: Good air entry, clear to auscultation bilaterally GI: Soft, non-tender; bowel sounds normal. No peritoneal signs Musculoskeletal: No pedal edema, no cyanosis. Drain + in back. Skin: No rash or abscess Hem/Lymphatic: No palpable cervical or supraclavicular nodes. No lymphangitis Psych: Mood ok. Affect normal Neurological: Awake, alert, oriented. No gross abnormality - Constitutional Vitals: Vital Signs Temp Pulse Resp BP Pulse Ox 98.3 F 69 18 111/64 99 04/22/20 11:39 04/22/20 11:39 04/22/20 11:39 04/22/20 11:39 04/22/20 11:39 Temperature -Last 24 Hours Temperature 98.3 F Temperature 98.5 F Temperature 98.6 F Temperature 98.3 F Temperature 98.3 F Temperature 98.9 F Temperature 98.9 F Temperature 98.2 F Temperature 98.2 F - Labs CBC & Chem 7: 04/20/20 08:33 04/21/20 10:32
[2020-04-23] MEDS: VANCOMYCIN 1,250 MG in SODIUM CHLORIDE 0.9% 250ML 250 ML IV SCH (03:00)
[2020-04-23] MEDS: CEFEPIME/NS 2 GM/100 ML 2 GM/100 ML BAG IV SCH (09:56)
[2020-04-23] MEDS: ETHAMBUTOL 400 MG TAB PO SCH (09:56)
[2020-04-23] MEDS: D5NS W/KCL 20 MEQ 20 MEQ/1,000 ML BAG IV SCH (09:56)
[2020-04-23] MEDS: PYRAZINAMIDE 500 MG TAB PO SCH (09:57)
[2020-04-23] MEDS: rifAMPin 300 MG CAP PO SCH (09:57)
[2020-04-23] MEDS: ISONIAZID 300 MG TAB PO SCH (09:57)
[2020-04-23] MEDS: PYRIDOXINE 50 MG TAB PO SCH (09:57)
--- NOTE | 2020-04-23 12:17 | Progress Note ---
Assessment and Plan Cultures: 04/18/2020 blood culture: no growth HIV: Nonreactive 04/19/2020 IR drainage bacterial culture: no growth AFB and fungal stains negative, cultures in process A/P: 19/M who is originally from [place], moved here at age 1, denies substance abuse admitted with: #L3 lumbar spinal osteomyelitis, left psoas abscess: Seems to be a subacute/chronic process, has undergone outpatient work-up over the last 8 months. He was seen by [place] [facility] who obtained an MRI of the lumbar spine which showed a complex cystic mass around the lumbar spinal region for which he underwent an IR guided biopsy on 04/14/2020 as an outpatient. Apparently, purulent fluid was aspirated there. Bone Biopsy results from [place] reviewed, "multiple fragments of benign skeletal muscle and fibroadipose tissue", it seems there were no cultures sent. Underwent IR drainage here, about 60 mL of seropurulent material was aspirated, 8 [place] drain was placed. ?cold abscess from TB. Cytology showed "mixed acute and chronic inflammatory cells, macrophages and proteinaceous debris", d/w Dr. Arteaga, AFB and fungal stains negative. #SBO: Gen Surg following. Unexplained etiology, patient without h/o prior abdominal surgery. ?TB related adhesions. #Leucocytosis, thrombocytosis secondary to above: improving. 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 No history of treatment. D/W patient's father. 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 Boles (d/w patient and his father on the phone), senior power scheduler notified -drain management per IR Can discharge from ID standpoint once TB treatment arranged through [facility]. D/W Dr. Everett Motley MD, FACP [facility] ([facility] O: [phone] F: [phone] Subjective Date of service: 04/23/20 Interval history: No fever. Continues to feel well. No vomiting. Objective - Exam Narrative Exam: Physical Exam: Constitutional: Alert, cooperative. No acute distress Head, Ears, Nose: Normocephalic, atraumatic. External ears, nose normal Eyes: Conjunctivae/corneas clear. No icterus. No ptosis. Neck: Supple, no meningeal signs Oral: mask Cardiovascular: S1, S2 normal. Respiratory: Good air entry, clear to auscultation bilaterally GI: Soft, non-tender; bowel sounds normal. No peritoneal signs Musculoskeletal: No pedal edema, no cyanosis. Drain + in back. Skin: No rash or abscess Hem/Lymphatic: No palpable cervical or supraclavicular nodes. No lymphangitis Psych: Mood ok. Affect normal Neurological: Awake, alert, oriented. No gross abnormality - Constitutional Vitals: Vital Signs Temp Pulse Resp BP Pulse Ox 98.1 F 77 17 105/61 96 04/23/20 11:19 04/23/20 11:19 04/23/20 11:19 04/23/20 11:19 04/23/20 11:19 Temperature -Last 24 Hours Temperature 98.1 F Temperature 98.2 F Temperature 98.8 F Temperature 98.4 F - Labs CBC & Chem 7: 04/20/20 08:33 04/21/20 10:32
--- NOTE | 2020-04-23 13:01 | Progress Note ---
Assessment and Plan Assessment and plan: s/p CT-guided needle aspiration of abscess And drain placement per IR 04/19/2020 --Small bowel obstruction : Continue NGT/low intermittent suction as needed IV fluids. 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; TB work-up in progress per ID Continue RIPE therapy Medical records from [place] reviewed by ID Closely monitor the patient and adjust management as needed Consults and recommendations noted and appreciated Plan of care reviewed with the patient and his nurse 04/23/2020; patient's bacterial cultures are negative, ID discontinued Vanco and cefepime 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 History Interval history: I have seen and examined the patient at the bedside Patient's chart and medications reviewed, patient's mother is in the room Patient feels slightly better, concerned about the abdominal drain ID has discontinued IV antibiotics as bacterial cultures are negative Patient feels better today afebrile No new complaints Vital signs reviewed Hospitalist Physical - Constitutional Vitals: Temp Pulse Resp BP Pulse Ox 98.1 F 77 17 105/61 96 04/23/20 11:19 04/23/20 11:19 04/23/20 11:19 04/23/20 11:19 04/23/20 11:19 General appearance: Present: no acute distress, well-nourished - EENT Eyes: Present: PERRL, EOM intact - Neck Neck: Present: supple, normal ROM - Respiratory Respiratory effort: normal Respiratory: bilateral: diminished, negative: rales, rhonchi, wheezing - Cardiovascular Rhythm: regular Heart Sounds: Present: S1 & S2 - Extremities Extremities: no ischemia, No edema - Abdominal General gastrointestinal: soft, non-tender, non-distended, normal bowel sounds, other (Abdominal drain in place) - Integumentary Integumentary: Present: clear, warm - Psychiatric Psychiatric: appropriate mood/affect, cooperative - Neurologic Neurologic: CNII-XII intact, moves all extremities Results - Labs CBC & Chem 7: 04/20/20 08:33 04/21/20 10:32 Labs: Laboratory Last Values WBC 9.3 K/mm3 (4.5-11.0) 04/20/20 08:33 RBC 4.71 M/mm3 (3.65-5.03) 04/20/20 08:33 Hgb 11.2 gm/dl (11.8-15.2) L 04/20/20 08:33 Hct 33.3 % (35.5-45.6) L 04/20/20 08:33 MCV 71 fl (84-94) L 04/20/20 08:33 MCH 24 pg (28-32) L 04/20/20 08:33 MCHC 34 % (32-34) 04/20/20 08:33 RDW 18.8 % (13.2-15.2) H 04/20/20 08:33 Plt Count 366 K/mm3 (140-440) 04/20/20 08:33 Lymph % (Auto) 6.6 % (13.4-35.0) L 04/19/20 04:52 [place] % (Auto) 4.7 % (0.0-7.3) 04/19/20 04:52 Eos % (Auto) 0.1 % (0.0-4.3) 04/19/20 04:52 Baso % (Auto) 0.1 % (0.0-1.8) 04/19/20 04:52 Lymph # (Auto) 0.8 K/mm3 (1.2-5.4) L 04/19/20 04:52 [place] # (Auto) 0.6 K/mm3 (0.0-0.8) 04/19/20 04:52 Eos # (Auto) 0.0 K/mm3 (0.0-0.4) 04/19/20 04:52 Baso # (Auto) 0.0 K/mm3 (0.0-0.1) 04/19/20 04:52 Seg Neutrophils % 88.5 % (40.0-70.0) H 04/19/20 04:52 Seg Neutrophils # 10.9 K/mm3 (1.8-7.7) H 04/19/20 04:52 Sodium 138 mmol/L (137-145) 04/21/20 10:32 Potassium 3.8 mmol/L (3.6-5.0) 04/21/20 10:32 Chloride 100.7 mmol/L (98-107) 04/21/20 10:32 Carbon Dioxide 28 mmol/L (22-30) D 04/21/20 10:32 Anion Gap 13 mmol/L 04/21/20 10:32 BUN 5 mg/dL (9-20) L 04/21/20 10:32 Creatinine 0.6 mg/dL (0.8-1.3) L D 04/21/20 10:32 Estimated GFR > 60 ml/min 04/21/20 10:32 BUN/Creatinine Ratio 8 % 04/21/20 10:32 Glucose 89 mg/dL (75-100) 04/21/20 10:32 POC Glucose 102 mg/dL (70-105) 04/21/20 21:06 Hemoglobin A1c 5.6 % (4-6) 04/18/20 09:10 Lactic Acid 0.90 mmol/L (0.7-2.0) 04/19/20 04:52 Calcium 8.9 mg/dL (8.4-10.2) 04/21/20 10:32 Phosphorus 3.50 mg/dL (2.5-4.5) 04/20/20 08:33 Magnesium 1.70 mg/dL (1.7-2.3) 04/20/20 08:33 Total Bilirubin 0.20 mg/dL (0.1-1.2) 04/17/20 23:08 AST 24 units/L (5-40) 04/17/20 23:08 ALT 24 units/L (7-56) 04/17/20 23:08 Alkaline Phosphatase 90 units/L (35-129) 04/17/20 23:08 Total Protein 8.1 g/dL (6.3-8.2) 04/17/20 23:08 Albumin 4.5 g/dL (3.9-5) 04/17/20 23:08 Albumin/Globulin Ratio 1.3 % 04/17/20 23:08 Triglycerides 36 mg/dL (2-149) 04/18/20 09:10 Cholesterol 89 mg/dL (50-199) 04/18/20 09:10 LDL Cholesterol Direct 38 mg/dL (50-130) L 04/18/20 09:10 HDL Cholesterol 48 mg/dL (40-59) 04/18/20 09:10 Cholesterol/HDL Ratio 1.85 % 04/18/20 09:10 Lipase 9 units/L (13-60) L 04/17/20 23:08 Urine Color Yellow (Yellow) 04/18/20 00:40 Urine Turbidity Slightly-cloudy (Clear) 04/18/20 00:40 Urine pH 5.0 (5.0-7.0) 04/18/20 00:40 Ur Specific [place] 1.017 (1.003-1.030) 04/18/20 00:40 Urine Protein 30 mg/dl mg/dL (Negative) 04/18/20 00:40 Urine Glucose (UA) Neg mg/dL (Negative) 04/18/20 00:40 Urine Ketones 20 mg/dL (Negative) 04/18/20 00:40 Urine Blood Neg (Negative) 04/18/20 00:40 Urine Nitrite Neg (Negative) 04/18/20 00:40 Urine Bilirubin Neg (Negative) 04/18/20 00:40 Urine Urobilinogen < 2.0 mg/dL (<2.0) 04/18/20 00:40 Ur Leukocyte Esterase Neg (Negative) 04/18/20 00:40 Urine WBC (Auto) 2.0 /HPF (0.0-6.0) 04/18/20 00:40 Urine RBC (Auto) < 1.0 /HPF (0.0-6.0) 04/18/20 00:40 U Epithel Cells (Auto) < 1.0 /HPF (0-13.0) 04/18/20 00:40 Urine Mucus Few /HPF 04/18/20 00:40 Vancomycin Trough 8.5 ug/mL (5.0-20.0) 04/21/20 10:32 HIV 1&2 Antibody Rapid Non react (Non React) 04/19/20 04:52 HIV P24 Antigen Non react (Non React) 04/19/20 04:52 AFB Identification 04/19/20 Unknown Fungal Id Prelim 04/19/20 Unknown Blood Type O POSITIVE 04/20/20 13:09 Antibody Screen Negative 04/20/20 13:09 Microbiology: Microbiology 04/18/20 18:47 Peripheral/Venous Blood Culture - Preliminary NO GROWTH AFTER 4 DAYS 04/18/20 16:55 Peripheral/Venous Blood Culture - Preliminary NO GROWTH AFTER 4 DAYS 04/19/20 Unknown Abdomen Surgical Culture - Final Campbell/IV: Voiding Method Urinal Active Medications - Current Medications Current Medications: Generic Name Dose Route Start Last Admin Trade Name Freq PRN Reason Stop Dose Admin Acetaminophen 650 mg 04/18/20 08:00 04/20/20 11:47 Acetaminophen 325 Mg Tab PO 650 mg Q4H PRN Administration Pain MILD(1-3)/Fever >100.5/MANZANARES Albuterol 2.5 mg 04/18/20 08:00 Albuterol 2.5 Mg/3 Ml Nebu IH Q4HRT PRN Shortness Of Breath Bisacodyl 10 mg 04/18/20 10:00 04/23/20 09:57 Bisacodyl 10 Mg Rect Supp MA Not Given QDAY ALFONSO Dextrose 50 ml 04/18/20 08:00 Dextrose 50% In Water (25gm) 50 Ml Syringe IV Q30MIN PRN Hypoglycemia Protocol Ethambutol HCl 1,200 mg 04/20/20 15:00 04/23/20 09:56 Ethambutol 400 Mg Tab PO 1,200 mg QDAY ALFONSO Administration Potassium Chloride/Dextrose/Sod Cl 20 meq in 1,000 mls @ 125 mls/hr 04/20/20 11:00 04/23/20 09:56 D5w/Ns W/Kcl 20meq IV 125 mls/hr DIRECT ALFONSO Administration Isoniazid 300 mg 04/20/20 15:00 04/23/20 09:57 Isoniazid 300 Mg Tab PO 300 mg QDAY ALFONSO Administration Morphine Sulfate 2 mg 04/18/20 08:30 04/21/20 02:31 Morphine 2 Mg/1 Ml Inj IV 2 mg Q4H PRN Administration Pain , Severe (7-10) Naloxone HCl 0.1 mg 04/18/20 08:00 Naloxone 0.4 Mg/1 Ml Inj IV Q2MIN PRN Res Rate </= 8 or 02 SAT < 92% Ondansetron HCl 4 mg 04/18/20 08:00 04/18/20 22:41 Ondansetron 4 Mg/2 Ml Inj IV 4 mg Q4H PRN Administration Nausea And Vomiting Phenol 1 spray 04/18/20 20:43 04/19/20 22:09 Phenol 1.4% 177 Ml Bottle MM 1 spray PRN PRN Administration Sore Throat Pyrazinamide 1,500 mg 04/20/20 15:00 04/23/20 09:57 Pyrazinamide 500 Mg Tab PO 1,500 mg QDAY ALFONSO Administration Pyridoxine HCl 50 mg 04/21/20 10:00 04/23/20 09:57 Pyridoxine 50 Mg Tab PO 50 mg QDAY ALFONSO Administration Rifampin 600 mg 04/20/20 15:00 04/23/20 09:57 Rifampin 300 Mg Cap PO 600 mg QDAY ALFONSO Administration Sodium Chloride 10 ml 04/18/20 10:00 04/23/20 09:57 Sodium Chloride 0.9% 10 Ml Flush Syringe IV 10 ml BID ALFONSO Administration Sodium Chloride 10 ml 04/18/20 08:00 Sodium Chloride 0.9% 10 Ml Flush Syringe IV PRN PRN LINE FLUSH Nutrition/Malnutrition Assess - Dietary Evaluation Nutrition/Malnutrition Findings: Nutrition Notes Start: 04/18/20 08:17 Freq: Status: Active Protocol: Document 04/22/20 09:48 AB (Rec: 04/22/20 09:59 AB [id number]) Co-Sign 04/22/20 09:48 MK Nutrition Notes Current Diagnosis Sepsis Other Pertinent Diagnosis psoas abscess, LTBI Current Diet GI soft/consistent CHO Labs/Tests BUN 5 Cr 0.6 Pertinent Medications Vancomyocin D5w/NS w/ Kcl at 125 ml/hr Vit B6 Height 5 ft 8 in Weight 62.1 kg [place] Body Weight (kg) 70.00 BMI 20.8 Weight change and time frame Wt gain of 5% in 4 days Weight Status Appropriate Subjective/Other Information F/U for diet advancement. Pt had SBFT on 04/20. advanced diet on 04/21. Pt stated that he has an appetite. DI observed pt breakfast meal tray eaten 100%. Pt complained of not able to have BM d/t not eating food in 4 days. Food preferences listed in chart. Percent of energy/protein needs met: 96%/100% Burn Absent Trauma Absent GI Symptoms Constipation Food Allergy No Current % PO Good (75-100%) Minimum of two criteria No physical signs of malnutrition #1 Nutrition Diagnosis Inadequate energy intake As Evidenced by Signs and Symptoms Pt diet advanced to GI soft and eating 75-100% of meals Diagnosis Progress(for reassessment Improved documentation) Is patient on ventilator? No Is Patient Ambulatory and/or Out of Bed Yes REE-([place]-[facility]. Jeor-ambulatory/OOB) [ 839.650 NUTR.MSJOOB] Calculation Used for Recommendations [facility] Additional Notes Protein needs: 47 - 59g (0.8 - 1 g/kgBW) Fluid needs: 1 ml/kcal Nutrition Intervention Change Diet Order: Continue current diet order Goal #1 Meet at least 80% of energy and protein needs via PO. Anticipated Discharge Needs: Regular diet Revisit per MD consult or patient Sign Off request:
[2020-04-23] MEDS: ACETAMINOPHEN 325 MG TAB PO PRN (21:53)
[2020-04-24] MEDS: rifAMPin 300 MG CAP PO SCH (09:11)
[2020-04-24] MEDS: ETHAMBUTOL 400 MG TAB PO SCH (09:11)
[2020-04-24] MEDS: ISONIAZID 300 MG TAB PO SCH (09:11)
[2020-04-24] MEDS: PYRAZINAMIDE 500 MG TAB PO SCH (09:12)
[2020-04-24] MEDS: PYRIDOXINE 50 MG TAB PO SCH (09:12)
--- NOTE | 2020-04-24 14:43 | Progress Note ---
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 04/24/2020; will discuss with case management tomorrow, to set up RIPE treatment for LTBI Brief history: 19-year-old [place] old patient has been in [place] age 1 was admitted through emergency room with abdominal pain and nausea.Patient has history of vertebral osteomyelitis underwent bone biopsy last at [place] outpatient facility, biopsy report reviewed by ID, inconclusive Initial evaluation with CT abdomen is consistent with small bowel obstruction, evaluated by surgery, NG tube placement with intermittent suction, resolved started on clear liquids advance diet per surgery Patient also had imaging study findings consistent with L3 vertebral osteomyelitis with left psoas abscess, IR evaluated the patient underwent needle aspiration and drainage tube placement, evaluated by ID, started on empiric antibiotics, bacterial cultures negative to date, and ID discontinued antibiotics. 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 ID requested case management Discharge planning per case management, for DOT via Health Department. Follow fungal antibiotic cultures from IR drainage here Check with IR drain assessment and follow-up DC planning per case management, tomorrow if stable Follow-up ID office 1 to 2 weeks or per schedule History Interval history: I have seen and examined the patient at the bedside this morning Patient's parents mother and father at the bedside Patient with latent TB infection, evaluated by ID, on RIPE therapy Patient has no new complaints Vital signs noted, Afebrile Not in acute distress Hospitalist Physical - Constitutional Vitals: Temp Pulse Resp BP Pulse Ox 98.6 F 85 18 103/70 98 04/24/20 11:57 04/24/20 11:57 04/24/20 11:57 04/24/20 11:57 04/24/20 11:57 General appearance: Present: no acute distress, well-nourished - EENT Eyes: Present: PERRL, EOM intact - Neck Neck: Present: supple, normal ROM - Respiratory Respiratory effort: normal Respiratory: bilateral: diminished, negative: rales, rhonchi, wheezing - Cardiovascular Rhythm: regular Heart Sounds: Present: S1 & S2 - Extremities Extremities: no ischemia, No edema - Abdominal General gastrointestinal: soft, non-tender, non-distended, normal bowel sounds - Integumentary Integumentary: Present: clear, warm - Psychiatric Psychiatric: appropriate mood/affect, cooperative - Neurologic Neurologic: moves all extremities Results - Labs CBC & Chem 7: 04/20/20 08:33 04/21/20 10:32 Labs: Laboratory Last Values WBC 9.3 K/mm3 (4.5-11.0) 04/20/20 08:33 RBC 4.71 M/mm3 (3.65-5.03) 04/20/20 08:33 Hgb 11.2 gm/dl (11.8-15.2) L 04/20/20 08:33 Hct 33.3 % (35.5-45.6) L 04/20/20 08:33 MCV 71 fl (84-94) L 04/20/20 08:33 MCH 24 pg (28-32) L 04/20/20 08:33 MCHC 34 % (32-34) 04/20/20 08:33 RDW 18.8 % (13.2-15.2) H 04/20/20 08:33 Plt Count 366 K/mm3 (140-440) 04/20/20 08:33 Lymph % (Auto) 6.6 % (13.4-35.0) L 04/19/20 04:52 [place] % (Auto) 4.7 % (0.0-7.3) 04/19/20 04:52 Eos % (Auto) 0.1 % (0.0-4.3) 04/19/20 04:52 Baso % (Auto) 0.1 % (0.0-1.8) 04/19/20 04:52 Lymph # (Auto) 0.8 K/mm3 (1.2-5.4) L 04/19/20 04:52 [place] # (Auto) 0.6 K/mm3 (0.0-0.8) 04/19/20 04:52 Eos # (Auto) 0.0 K/mm3 (0.0-0.4) 04/19/20 04:52 Baso # (Auto) 0.0 K/mm3 (0.0-0.1) 04/19/20 04:52 Seg Neutrophils % 88.5 % (40.0-70.0) H 04/19/20 04:52 Seg Neutrophils # 10.9 K/mm3 (1.8-7.7) H 04/19/20 04:52 Sodium 138 mmol/L (137-145) 04/21/20 10:32 Potassium 3.8 mmol/L (3.6-5.0) 04/21/20 10:32 Chloride 100.7 mmol/L (98-107) 04/21/20 10:32 Carbon Dioxide 28 mmol/L (22-30) D 04/21/20 10:32 Anion Gap 13 mmol/L 04/21/20 10:32 BUN 5 mg/dL (9-20) L 04/21/20 10:32 Creatinine 0.6 mg/dL (0.8-1.3) L D 04/21/20 10:32 Estimated GFR > 60 ml/min 04/21/20 10:32 BUN/Creatinine Ratio 8 % 04/21/20 10:32 Glucose 89 mg/dL (75-100) 04/21/20 10:32 POC Glucose 102 mg/dL (70-105) 04/21/20 21:06 Hemoglobin A1c 5.6 % (4-6) 04/18/20 09:10 Lactic Acid 0.90 mmol/L (0.7-2.0) 04/19/20 04:52 Calcium 8.9 mg/dL (8.4-10.2) 04/21/20 10:32 Phosphorus 3.50 mg/dL (2.5-4.5) 04/20/20 08:33 Magnesium 1.70 mg/dL (1.7-2.3) 04/20/20 08:33 Total Bilirubin 0.20 mg/dL (0.1-1.2) 04/17/20 23:08 AST 24 units/L (5-40) 04/17/20 23:08 ALT 24 units/L (7-56) 04/17/20 23:08 Alkaline Phosphatase 90 units/L (35-129) 04/17/20 23:08 Total Protein 8.1 g/dL (6.3-8.2) 04/17/20 23:08 Albumin 4.5 g/dL (3.9-5) 04/17/20 23:08 Albumin/Globulin Ratio 1.3 % 04/17/20 23:08 Triglycerides 36 mg/dL (2-149) 04/18/20 09:10 Cholesterol 89 mg/dL (50-199) 04/18/20 09:10 LDL Cholesterol Direct 38 mg/dL (50-130) L 04/18/20 09:10 HDL Cholesterol 48 mg/dL (40-59) 04/18/20 09:10 Cholesterol/HDL Ratio 1.85 % 04/18/20 09:10 Lipase 9 units/L (13-60) L 04/17/20 23:08 Urine Color Yellow (Yellow) 04/18/20 00:40 Urine Turbidity Slightly-cloudy (Clear) 04/18/20 00:40 Urine pH 5.0 (5.0-7.0) 04/18/20 00:40 Ur Specific [place] 1.017 (1.003-1.030) 04/18/20 00:40 Urine Protein 30 mg/dl mg/dL (Negative) 04/18/20 00:40 Urine Glucose (UA) Neg mg/dL (Negative) 04/18/20 00:40 Urine Ketones 20 mg/dL (Negative) 04/18/20 00:40 Urine Blood Neg (Negative) 04/18/20 00:40 Urine Nitrite Neg (Negative) 04/18/20 00:40 Urine Bilirubin Neg (Negative) 04/18/20 00:40 Urine Urobilinogen < 2.0 mg/dL (<2.0) 04/18/20 00:40 Ur Leukocyte Esterase Neg (Negative) 04/18/20 00:40 Urine WBC (Auto) 2.0 /HPF (0.0-6.0) 04/18/20 00:40 Urine RBC (Auto) < 1.0 /HPF (0.0-6.0) 04/18/20 00:40 U Epithel Cells (Auto) < 1.0 /HPF (0-13.0) 04/18/20 00:40 Urine Mucus Few /HPF 04/18/20 00:40 Vancomycin Trough 8.5 ug/mL (5.0-20.0) 04/21/20 10:32 HIV 1&2 Antibody Rapid Non react (Non React) 04/19/20 04:52 HIV P24 Antigen Non react (Non React) 04/19/20 04:52 AFB Identification 04/19/20 Unknown Fungal Id Prelim 04/19/20 Unknown Blood Type O POSITIVE 04/20/20 13:09 Antibody Screen Negative 04/20/20 13:09 Microbiology: Microbiology 04/18/20 18:47 Peripheral/Venous Blood Culture - Final NO GROWTH AFTER 5 DAYS 04/18/20 16:55 Peripheral/Venous Blood Culture - Final NO GROWTH AFTER 5 DAYS Campbell/IV: Voiding Method Toilet Active Medications - Current Medications Current Medications: Generic Name Dose Route Start Last Admin Trade Name Freq PRN Reason Stop Dose Admin Acetaminophen 650 mg 04/18/20 08:00 04/23/20 21:53 Acetaminophen 325 Mg Tab PO 650 mg Q4H PRN Administration Pain MILD(1-3)/Fever >100.5/MANZANARES Albuterol 2.5 mg 04/18/20 08:00 Albuterol 2.5 Mg/3 Ml Nebu IH Q4HRT PRN Shortness Of Breath Bisacodyl 10 mg 04/18/20 10:00 04/24/20 09:12 Bisacodyl 10 Mg Rect Supp UT Not Given QDAY ALFONSO Dextrose 50 ml 04/18/20 08:00 Dextrose 50% In Water (25gm) 50 Ml Syringe IV Q30MIN PRN Hypoglycemia Protocol Ethambutol HCl 1,200 mg 04/20/20 15:00 04/24/20 09:11 Ethambutol 400 Mg Tab PO 1,200 mg QDAY ALFONSO Administration Potassium Chloride/Dextrose/Sod Cl 20 meq in 1,000 mls @ 125 mls/hr 04/20/20 11:00 04/23/20 09:56 D5w/Ns W/Kcl 20meq IV 125 mls/hr DIRECT ALFONSO Administration Isoniazid 300 mg 04/20/20 15:00 04/24/20 09:11 Isoniazid 300 Mg Tab PO 300 mg QDAY ALFONSO Administration Morphine Sulfate 2 mg 04/18/20 08:30 04/21/20 02:31 Morphine 2 Mg/1 Ml Inj IV 2 mg Q4H PRN Administration Pain , Severe (7-10) Naloxone HCl 0.1 mg 04/18/20 08:00 Naloxone 0.4 Mg/1 Ml Inj IV Q2MIN PRN Res Rate </= 8 or 02 SAT < 92% Ondansetron HCl 4 mg 04/18/20 08:00 04/18/20 22:41 Ondansetron 4 Mg/2 Ml Inj IV 4 mg Q4H PRN Administration Nausea And Vomiting Phenol 1 spray 04/18/20 20:43 04/19/20 22:09 Phenol 1.4% 177 Ml Bottle MM 1 spray PRN PRN Administration Sore Throat Pyrazinamide 1,500 mg 04/20/20 15:00 04/24/20 09:12 Pyrazinamide 500 Mg Tab PO 1,500 mg QDAY ALFONSO Administration Pyridoxine HCl 50 mg 04/21/20 10:00 04/24/20 09:12 Pyridoxine 50 Mg Tab PO 50 mg QDAY ALFONSO Administration Rifampin 600 mg 04/20/20 15:00 04/24/20 09:11 Rifampin 300 Mg Cap PO 600 mg QDAY ALFONSO Administration Sodium Chloride 10 ml 04/18/20 10:00 04/24/20 09:12 Sodium Chloride 0.9% 10 Ml Flush Syringe IV 10 ml BID ALFONSO Administration Sodium Chloride 10 ml 04/18/20 08:00 Sodium Chloride 0.9% 10 Ml Flush Syringe IV PRN PRN LINE FLUSH Nutrition/Malnutrition Assess - Dietary Evaluation Nutrition/Malnutrition Findings: Nutrition Notes Start: 04/18/20 08:17 Freq: Status: Active Protocol: Document 04/22/20 09:48 AB (Rec: 04/22/20 09:59 AB [id number]) Co-Sign 04/22/20 09:48 MK Nutrition Notes Current Diagnosis Sepsis Other Pertinent Diagnosis psoas abscess, LTBI Current Diet GI soft/consistent CHO Labs/Tests BUN 5 Cr 0.6 Pertinent Medications Vancomyocin D5w/NS w/ Kcl at 125 ml/hr Vit B6 Height 5 ft 8 in Weight 62.1 kg [place] Body Weight (kg) 70.00 BMI 20.8 Weight change and time frame Wt gain of 5% in 4 days Weight Status Appropriate Subjective/Other Information F/U for diet advancement. Pt had SBFT on 04/20. MD advanced diet on 04/21. Pt stated that he has an appetite. DI observed pt breakfast meal tray eaten 100%. Pt complained of not able to have BM d/t not eating food in 4 days. Food preferences listed in chart. Percent of energy/protein needs met: 96%/100% Burn Absent Trauma Absent GI Symptoms Constipation Food Allergy No Current % PO Good (75-100%) Minimum of two criteria No physical signs of malnutrition #1 Nutrition Diagnosis Inadequate energy intake As Evidenced by Signs and Symptoms Pt diet advanced to GI soft and eating 75-100% of meals Diagnosis Progress(for reassessment Improved documentation) Is patient on ventilator? No Is Patient Ambulatory and/or Out of Bed Yes REE-([facility]-ambulatory/OOB) [ 2079.650 NUTR.MSJOOB] Calculation Used for Recommendations [facility] Additional Notes Protein needs: 47 - 59g (0.8 - 1 g/kgBW) Fluid needs: 1 ml/kcal Nutrition Intervention Change Diet Order: Continue current diet order Goal #1 Meet at least 80% of energy and protein needs via PO. Anticipated Discharge Needs: Regular diet Revisit per MD consult or patient Sign Off request:
[2020-04-25] MEDS: ISONIAZID 300 MG TAB PO SCH (09:34)
[2020-04-25] MEDS: PYRIDOXINE 50 MG TAB PO SCH (09:35)
[2020-04-25] MEDS: ETHAMBUTOL 400 MG TAB PO SCH (09:35)
[2020-04-25] MEDS: rifAMPin 300 MG CAP PO SCH (09:35)
[2020-04-25] MEDS: PYRAZINAMIDE 500 MG TAB PO SCH (09:36)
--- NOTE | 2020-04-25 13:53 | Progress Note ---
Assessment and Plan Cultures: 04/18/2020 blood culture: no growth HIV: Nonreactive 04/19/2020 IR drainage bacterial culture: no growth AFB and fungal stains negative, cultures in process A/P: 19/M who is originally from [place], moved here at age 1, denies substance abuse admitted with: #L3 lumbar spinal osteomyelitis, left psoas abscess: Seems to be a subacute/chronic process, has undergone outpatient work-up over the last 8 months. He was seen by [place] [facility]ology who obtained an MRI of the lumbar spine which showed a complex cystic mass around the lumbar spinal region for which he underwent an IR guided biopsy on 04/14/2020 as an outpatient. Apparently, purulent fluid was aspirated there. Bone Biopsy results from [place] reviewed, "multiple fragments of benign skeletal muscle and fibroadipose tissue", it seems there were no cultures sent. Underwent IR drainage here, about 60 mL of seropurulent material was aspirated, 8 [place] drain was placed. ?cold abscess from TB. Cytology showed "mixed acute and chronic inflammatory cells, macrophages and proteinaceous debris", d/w Dr. Arteaga, AFB and fungal stains negative. #SBO: Gen Surg following. Unexplained etiology, patient without h/o prior abdominal surgery. ?TB related adhesions. #Leucocytosis, thrombocytosis secondary to above: improving. 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 No history of treatment. D/W patient's father. 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 Boles (d/w patient and his father on the phone), cell biology scientist notified -drain management per IR Can discharge from ID standpoint once TB treatment arranged through Health D epartment. Vivi Ramos MD [facility] O: [phone] F: [phone] Subjective Date of service: 04/25/20 Interval history: Afebrile, normal white count. Objective - Exam Narrative Exam: Physical exam deferred due to PPE conservation strategy. Please refer to primary team's note. - Constitutional Vitals: Vital Signs Temp Pulse Resp BP Pulse Ox 98.1 F 97 H 18 107/65 100 04/25/20 11:45 04/25/20 11:45 04/25/20 11:45 04/25/20 11:45 04/25/20 11:45 Temperature -Last 24 Hours Temperature 98.1 F Temperature 98.6 F Temperature 99.3 F Temperature 98.5 F Temperature 98.3 F Temperature 98.8 F - Labs CBC & Chem 7: 04/20/20 08:33 04/21/20 10:32
--- NOTE | 2020-04-25 16:57 | Event Note ---
Date: 04/25/20 Removed drain at bedside. No issues.
--- NOTE | 2020-04-25 19:00 | Progress Note ---
Assessment and Plan Assessment and plan: --NOAH drain removed today per IR No issues drain site clean and dry --CM processing DOT/RI PE medications from health department prior to discharge Awaiting response from health department --s/p CT-guided needle aspiration of abscess And drain placement per IR 04/19/[address] --Small bowel obstruction : s/pNGT/low intermittent suction Resolved, diet as tolerated --Sepsis secondary to psoas abscess And osteomyelitis of L3, received empiric antibiotics Bacterial Cultures negative to date And ID discontinue IV antibiotics --Left psoas abscess: s/p needle aspiration and drainage tube placement -- Lumbar (L3) vertebral osteomyelitis Status post incision drainage Cultures negative, ID dc'd vanco/Cefepime --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 04/24/2020; will discuss with case management tomorrow, to set up RIPE treatment for LTBI 04/25/2020; patient's NOAH drain was removed, awaiting health department DOT/RIPE medications Per ID recommendations, case management awaiting callback from health department Possible discharge tomorrow if everything is set up Brief history: 19-year-old Citizen Of [place] old [place] age 1 was admitted through emergency room with abdominal pain and nausea.Patient has history of vertebral osteomyelitis underwent bone biopsy last at [facility] outpatient facility, biopsy report reviewed by ID, inconclusive Initial evaluation with CT abdomen is consistent with small bowel obstruction, evaluated by surgery, NG tube placement with intermittent suction, resolved started on clear liquids advance diet per surgery Patient also had imaging study findings consistent with L3 vertebral osteomyelitis with left psoas abscess, IR evaluated the patient underwent needle aspiration and drainage tube placement, evaluated by ID, started on empiric antibiotics, bacterial cultures negative to date, and ID discontinued antibiotics. 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 ID requested case management Discharge planning per case management, for DOT via Health Department. Follow fungal antibiotic cultures from IR drainage here Check with IR drain assessment and follow-up DC planning per case management, tomorrow if stable Follow-up ID office 1 to 2 weeks or per schedule History Interval history: I have seen and examined the patient at the bedside Patient's chart and medications reviewed ID has recommended DOT/RI PE medications from health department Case management processing IR has removed NOAH drain, no complications Patient anxious to go home No new complaints Vital signs reviewed Hospitalist Physical - Constitutional Vitals: Temp Pulse Resp BP Pulse Ox 98.1 F 94 H 18 112/62 99 04/25/20 11:45 04/25/20 16:00 04/25/20 16:00 04/25/20 16:00 04/25/20 16:00 General appearance: Present: no acute distress, well-nourished - EENT Eyes: Present: PERRL, EOM intact - Neck Neck: Present: supple, normal ROM - Respiratory Respiratory effort: normal Respiratory: bilateral: diminished, negative: rales, rhonchi, wheezing - Cardiovascular Rhythm: regular Heart Sounds: Present: S1 & S2 - Extremities Extremities: no ischemia, No edema Peripheral Pulses: within normal limits - Abdominal General gastrointestinal: soft, non-tender, non-distended, normal bowel sounds - Integumentary Integumentary: Present: clear, warm - Psychiatric Psychiatric: appropriate mood/affect, cooperative - Neurologic Neurologic: CNII-XII intact, moves all extremities Results - Labs CBC & Chem 7: 04/20/20 08:33 04/21/20 10:32 Labs: Laboratory Last Values WBC 9.3 K/mm3 (4.5-11.0) 04/20/20 08:33 RBC 4.71 M/mm3 (3.65-5.03) 04/20/20 08:33 Hgb 11.2 gm/dl (11.8-15.2) L 04/20/20 08:33 Hct 33.3 % (35.5-45.6) L 04/20/20 08:33 MCV 71 fl (84-94) L 04/20/20 08:33 MCH 24 pg (28-32) L 04/20/20 08:33 MCHC 34 % (32-34) 04/20/20 08:33 RDW 18.8 % (13.2-15.2) H 04/20/20 08:33 Plt Count 366 K/mm3 (140-440) 04/20/20 08:33 Lymph % (Auto) 6.6 % (13.4-35.0) L 04/19/20 04:52 Borden % (Auto) 4.7 % (0.0-7.3) 04/19/20 04:52 Eos % (Auto) 0.1 % (0.0-4.3) 04/19/20 04:52 Baso % (Auto) 0.1 % (0.0-1.8) 04/19/20 04:52 Lymph # (Auto) 0.8 K/mm3 (1.2-5.4) L 04/19/20 04:52 Borden # (Auto) 0.6 K/mm3 (0.0-0.8) 04/19/20 04:52 Eos # (Auto) 0.0 K/mm3 (0.0-0.4) 04/19/20 04:52 Baso # (Auto) 0.0 K/mm3 (0.0-0.1) 04/19/20 04:52 Seg Neutrophils % 88.5 % (40.0-70.0) H 04/19/20 04:52 Seg Neutrophils # 10.9 K/mm3 (1.8-7.7) H 04/19/20 04:52 Sodium 138 mmol/L (137-145) 04/21/20 10:32 Potassium 3.8 mmol/L (3.6-5.0) 04/21/20 10:32 Chloride 100.7 mmol/L (98-107) 04/21/20 10:32 Carbon Dioxide 28 mmol/L (22-30) D 04/21/20 10:32 Anion Gap 13 mmol/L 04/21/20 10:32 BUN 5 mg/dL (9-20) L 04/21/20 10:32 Creatinine 0.6 mg/dL (0.8-1.3) L D 04/21/20 10:32 Estimated GFR > 60 ml/min 04/21/20 10:32 BUN/Creatinine Ratio 8 % 04/21/20 10:32 Glucose 89 mg/dL (75-100) 04/21/20 10:32 POC Glucose 102 mg/dL (70-105) 04/21/20 21:06 Hemoglobin A1c 5.6 % (4-6) 04/18/20 09:10 Lactic Acid 0.90 mmol/L (0.7-2.0) 04/19/20 04:52 Calcium 8.9 mg/dL (8.4-10.2) 04/21/20 10:32 Phosphorus 3.50 mg/dL (2.5-4.5) 04/20/20 08:33 Magnesium 1.70 mg/dL (1.7-2.3) 04/20/20 08:33 Total Bilirubin 0.20 mg/dL (0.1-1.2) 04/17/20 23:08 AST 24 units/L (5-40) 04/17/20 23:08 ALT 24 units/L (7-56) 04/17/20 23:08 Alkaline Phosphatase 90 units/L (35-129) 04/17/20 23:08 Total Protein 8.1 g/dL (6.3-8.2) 04/17/20 23:08 Albumin 4.5 g/dL (3.9-5) 04/17/20 23:08 Albumin/Globulin Ratio 1.3 % 04/17/20 23:08 Triglycerides 36 mg/dL (2-149) 04/18/20 09:10 Cholesterol 89 mg/dL (50-199) 04/18/20 09:10 LDL Cholesterol Direct 38 mg/dL (50-130) L 04/18/20 09:10 HDL Cholesterol 48 mg/dL (40-59) 04/18/20 09:10 Cholesterol/HDL Ratio 1.85 % 04/18/20 09:10 Lipase 9 units/L (13-60) L 04/17/20 23:08 Urine Color Yellow (Yellow) 04/18/20 00:40 Urine Turbidity Slightly-cloudy (Clear) 04/18/20 00:40 Urine pH 5.0 (5.0-7.0) 04/18/20 00:40 Ur Specific [employer] 1.017 (1.003-1.030) 04/18/20 00:40 Urine Protein 30 mg/dl mg/dL (Negative) 04/18/20 00:40 Urine Glucose (UA) Neg mg/dL (Negative) 04/18/20 00:40 Urine Ketones 20 mg/dL (Negative) 04/18/20 00:40 Urine Blood Neg (Negative) 04/18/20 00:40 Urine Nitrite Neg (Negative) 04/18/20 00:40 Urine Bilirubin Neg (Negative) 04/18/20 00:40 Urine Urobilinogen < 2.0 mg/dL (<2.0) 04/18/20 00:40 Ur Leukocyte Esterase Neg (Negative) 04/18/20 00:40 Urine WBC (Auto) 2.0 /HPF (0.0-6.0) 04/18/20 00:40 Urine RBC (Auto) < 1.0 /HPF (0.0-6.0) 04/18/20 00:40 U Epithel Cells (Auto) < 1.0 /HPF (0-13.0) 04/18/20 00:40 Urine Mucus Few /HPF 04/18/20 00:40 Vancomycin Trough 8.5 ug/mL (5.0-20.0) 04/21/20 10:32 HIV 1&2 Antibody Rapid Non react (Non React) 04/19/20 04:52 HIV P24 Antigen Non react (Non React) 04/19/20 04:52 AFB Identification 04/19/20 Unknown Fungal Id Prelim 04/19/20 Unknown Blood Type O POSITIVE 04/20/20 13:09 Antibody Screen Negative 04/20/20 13:09 Campbell/IV: Voiding Method Toilet Active Medications - Current Medications Current Medications: Generic Name Dose Route Start Last Admin Trade Name Freq PRN Reason Stop Dose Admin Acetaminophen 650 mg 04/18/20 08:00 04/23/20 21:53 Acetaminophen 325 Mg Tab PO 650 mg Q4H PRN Administration Pain MILD(1-3)/Fever >100.5/MANZANARES Albuterol 2.5 mg 04/18/20 08:00 Albuterol 2.5 Mg/3 Ml Nebu IH Q4HRT PRN Shortness Of Breath Bisacodyl 10 mg 04/18/20 10:00 04/25/20 09:36 Bisacodyl 10 Mg Rect Supp MN Not Given QDAY ALFONSO Dextrose 50 ml 04/18/20 08:00 Dextrose 50% In Water (25gm) 50 Ml Syringe IV Q30MIN PRN Hypoglycemia Protocol Ethambutol HCl 1,200 mg 04/20/20 15:00 04/25/20 09:35 Ethambutol 400 Mg Tab PO 1,200 mg QDAY ALFONSO Administration Potassium Chloride/Dextrose/Sod Cl 20 meq in 1,000 mls @ 125 mls/hr 04/20/20 11:00 04/24/20 20:46 D5w/Ns W/Kcl 20meq IV Infused DIRECT ALFONSO Infusion Isoniazid 300 mg 04/20/20 15:00 04/25/20 09:34 Isoniazid 300 Mg Tab PO 300 mg QDAY ALFONSO Administration Morphine Sulfate 2 mg 04/18/20 08:30 04/21/20 02:31 Morphine 2 Mg/1 Ml Inj IV 2 mg Q4H PRN Administration Pain , Severe (7-10) Naloxone HCl 0.1 mg 04/18/20 08:00 Naloxone 0.4 Mg/1 Ml Inj IV Q2MIN PRN Res Rate </= 8 or 02 SAT < 92% Ondansetron HCl 4 mg 04/18/20 08:00 04/18/20 22:41 Ondansetron 4 Mg/2 Ml Inj IV 4 mg Q4H PRN Administration Nausea And Vomiting Phenol 1 spray 04/18/20 20:43 04/19/20 22:09 Phenol 1.4% 177 Ml Bottle MM 1 spray PRN PRN Administration Sore Throat Pyrazinamide 1,500 mg 04/20/20 15:00 04/25/20 09:36 Pyrazinamide 500 Mg Tab PO 1,500 mg QDAY ALFONSO Administration Pyridoxine HCl 50 mg 04/21/20 10:00 04/25/20 09:35 Pyridoxine 50 Mg Tab PO 50 mg QDAY ALFONSO Administration Rifampin 600 mg 04/20/20 15:00 04/25/20 09:35 Rifampin 300 Mg Cap PO 600 mg QDAY ALFONSO Administration Sodium Chloride 10 ml 04/18/20 10:00 04/25/20 09:36 Sodium Chloride 0.9% 10 Ml Flush Syringe IV 10 ml BID ALFONSO Administration Sodium Chloride 10 ml 04/18/20 08:00 Sodium Chloride 0.9% 10 Ml Flush Syringe IV PRN PRN LINE FLUSH Nutrition/Malnutrition Assess - Dietary Evaluation Nutrition/Malnutrition Findings: Nutrition Notes Start: 04/18/20 08:17 Freq: Status: Active Protocol: Document 04/25/20 08:39 MK (Rec: 04/25/20 08:40 [id number]) Nutrition Notes Need for Assessment generated from: LOS Initial or Follow up Brief Note Current Diagnosis Sepsis Other Pertinent Diagnosis psoas abscess, LTBI Current Diet GI soft, double meat Subjective/Other Information Screen for LOS. Per chart, pt eating 75-100% of meals. Nutrition Intervention Revisit per MD consult or patient Sign Off request:
--- NOTE | 2020-04-25 19:07 | Death Summary ---
Summary - Providers Consults: 04/18/20 07:32 Consult to Physician [CONS] Routine Comment: Consulting Provider: ELY HARRINGTON Physician Instructions: Reason For Exam: psoas abscess 04/18/20 07:39 Consult to Dietitian/Nutrition [CONS] Routine Physician Instructions: Reason For Exam: Reason for Consult: Malnutrition 04/18/20 07:40 Consult to Physician [CONS] Routine Comment: Consulting Provider: EDMUNDO ANDRE Physician Instructions: Reason For Exam: Psoas abscess 04/18/20 12:43 Consult to Interventional Radiology [CONS] Routine Consulting Provider: KUSH DEAL Reason For Exam: L psoas abscess Notified:: Dr. Umana 04/23/20 12:20 Consult to Case Management [CONS] Routine Services Needed at Discharge: Other Comment:: DOT for TB treatment via health department Additional Physician Instructions: DOT for TB treatment via health department Attending: LEOLA CASTILLO - summary Date of admission: 04/18/20 15:46
[2020-04-25] MEDS: ACETAMINOPHEN 325 MG TAB PO PRN (23:06)
--- NOTE | 2020-04-26 09:15 | Discharge Summary ---
Providers - Providers Date of Admission: 04/18/20 15:46 Date of discharge: 04/26/20 Attending physician: LEOLA CASTILLO 04/18/20 07:32 Consult to Physician [CONS] Routine Comment: Consulting Provider: ELY HARRINGTON Physician Instructions: Reason For Exam: psoas abscess 04/18/20 07:39 Consult to Dietitian/Nutrition [CONS] Routine Physician Instructions: Reason For Exam: Reason for Consult: Malnutrition 04/18/20 07:40 Consult to Physician [CONS] Routine Comment: Consulting Provider: EDMUNDO ANDRE Physician Instructions: Reason For Exam: Psoas abscess 04/18/20 12:43 Consult to Interventional Radiology [CONS] Routine Consulting Provider: KUSH DEAL Reason For Exam: L psoas abscess Notified:: Dr. Woodard 04/23/20 12:20 Consult to Case Management [CONS] Routine Services Needed at Discharge: Other Notified:: cm notified Comment:: DOT for TB treatment via health department Additional Physician Instructions: DOT for TB treatment via health department Primary care physician: EDGER RUNNER Hospitalization Condition: Stable Hospital course: Brief history: 19-year-old [place] old [place] age 1 was admitted through emergency room with abdominal pain and nausea.Patient has history of vertebral osteomyelitis underwent bone biopsy last at [facility] outpatient facility, biopsy report reviewed by ID, inconclusive Initial evaluation with CT abdomen is consistent with small bowel obstruction, evaluated by surgery, NG tube placement with intermittent suction, resolved started on clear liquids advance diet per surgery Patient also had imaging study findings consistent with L3 vertebral osteomyelitis with left psoas abscess, IR evaluated the patient underwent needle aspiration and drainage tube placement, evaluated by ID, started on empiric antibiotics, bacterial cultures negative to date, and ID discontinued antibiotics. 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 ID requested case management Discharge planning per case management, for DOT via Health Department. Follow fungal antibiotic cultures from IR drainage here Check with IR drain assessment and follow-up DC planning per case management, tomorrow if stable Follow-up ID office 1 to 2 weeks or per schedule Final diagnosis; --ONAH drain removed today per IR No issues drain site clean and dry --CM processing DOT/RI PE medications from health department prior to discharge Awaiting response from health department --s/p CT-guided needle aspiration of abscess And drain placement per IR 04/19/[address] --Small bowel obstruction : s/pNGT/low intermittent suction Resolved, diet as tolerated --Sepsis secondary to psoas abscess And osteomyelitis of L3, received empiric antibiotics Bacterial Cultures negative to date And ID discontinue IV antibiotics --Left psoas abscess: s/p needle aspiration and drainage tube placement -- Lumbar (L3) vertebral osteomyelitis Status post incision drainage Cultures negative, ID dc'd vanco/Cefepime --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 04/24/2020; will discuss with case management tomorrow, to set up RIPE treatment for LTBI 04/25/2020; patient's NOAH drain was removed, awaiting health department DOT/RIPE medications Per ID recommendations, case management awaiting callback from health department Possible discharge tomorrow if everything is set up Disposition: DC-01 TO HOME OR SELFCARE Final Discharge Diagnosis (Prints w/discharge instructions): --Latent TB infection. --Small bowel obstruction resolved. --Left psoas abscess status post drainage. --Sepsis secondary to abscess. --L3 osteomyelitis Time spent for discharge: 35 min Core Measure Documentation - Palliative Care Palliative Care/ Comfort Measures: Not Applicable - Core Measures Any of the following diagnoses?: none Exam - Constitutional Vitals: Temp Pulse Resp BP Pulse Ox 98.2 F 81 18 101/57 98 04/26/20 07:34 04/26/20 07:34 04/26/20 07:34 04/26/20 07:34 04/26/20 07:34 General appearance: Present: no acute distress, well-nourished - EENT Eyes: Present: PERRL, EOM intact - Neck Neck: Present: supple, normal ROM - Respiratory Respiratory effort: normal Respiratory: bilateral: diminished, negative: rales, rhonchi, wheezing - Cardiovascular Rhythm: regular Heart Sounds: Present: S1 & S2 - Extremities Extremities: no ischemia, No edema - Abdominal General gastrointestinal: Present: soft, non-tender, non-distended, normal bowel sounds - Integumentary Integumentary: Present: clear, warm - Musculoskeletal Musculoskeletal: strength equal bilaterally, generalized weakness - Psychiatric Psychiatric: appropriate mood/affect, cooperative - Neurologic Neurologic: CNII-XII intact, moves all extremities Plan Activity: advance as tolerated, fall precautions Diet: regular Additional Instructions: 15 days of school excuse from 04/27/2026. Advised to follow primary care physician for additional days if needed. Follow health department per schedule. Follow ID per schedule. Nutrition supplements/Ensure Plus 1 can 3 times a day Follow up with: PRIMARY CAREMD [Primary Care Provider] - 7 Days SARIKA DE LA GARZA MD [Staff Physician] - 14 Days KUSH WOODARD MD [Staff Physician] - 14 Days Prescriptions: Phenol 1.4% [Chloraseptic] 1 spray MM PRN PRN #1 bottle PRN Reason: Sore Throat Isoniazid 300 mg PO QDAY #30 tablet Ethambutol [Myambutol] 1,200 mg PO QDAY #30 tablet Pyrazinamide 1,500 mg PO QDAY #30 tablet rifAMPin [Rifadin] 600 mg PO QDAY #30 capsule Benzonatate [Tessalon Perles] 100 mg PO Q8HR #30 capsule traMADoL [Ultram 50 MG tab] 50 mg PO Q8H PRN #15 tablet PRN Reason: Pain Pyridoxine [Vitamin B-6 50MG TAB] 50 mg PO QDAY #30 tablet
[2020-04-26] MEDS: ETHAMBUTOL 400 MG TAB PO SCH (09:19)
[2020-04-26] MEDS: ISONIAZID 300 MG TAB PO SCH (09:19)
[2020-04-26] MEDS: PYRAZINAMIDE 500 MG TAB PO SCH (09:19)
[2020-04-26] MEDS: PYRIDOXINE 50 MG TAB PO SCH (09:19)
[2020-04-26] MEDS: rifAMPin 300 MG CAP PO SCH (09:19)
[2020-04-26 12:20] VITALS: BP 104/54
--- NOTE | 2020-04-26 12:54 | Progress Note ---
Assessment and Plan Cultures: 04/18/2020 blood culture: no growth HIV: Nonreactive 04/19/2020 IR drainage bacterial culture: no growth AFB and fungal stains negative, cultures in process A/P: 19/M who is originally from [place], moved here at age 1, denies substance abuse admitted with: #L3 lumbar spinal osteomyelitis, left psoas abscess: Seems to be a subacute/chronic process, has undergone outpatient work-up over the last 8 months. He was seen by [facility] who obtained an MRI of the lumbar spine which showed a complex cystic mass around the lumbar spinal region for which he underwent an IR guided biopsy on 04/14/2020 as an outpatient. Apparently, purulent fluid was aspirated there. Bone Biopsy results from [facility] reviewed, "multiple fragments of benign skeletal muscle and fibroadipose tissue", it seems there were no cultures sent. Underwent IR drainage here, about 60 mL of seropurulent material was aspirated, 8 [place] drain was placed. ?cold abscess from TB. Cytology showed "mixed acute and chronic inflammatory cells, macrophages and proteinaceous debris", d/w Dr. Arteaga, AFB and fungal stains negative. #SBO: Gen Surg following. Unexplained etiology, patient without h/o prior abdominal surgery. ?TB related adhesions. #Leucocytosis, thrombocytosis secondary to above: improving. 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 No history of treatment. D/W patient's father. 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 Boles (d/w patient and his father on the phone), radiographer notified -drain removed per IR. Can discharge from ID standpoint once TB [facility] arranged [facility] Vivi Ramos MD [facility] O: [phone] F: [phone] Subjective Date of service: 04/26/20 Interval history: Afebrile, normal white count. No acute issues today. For discharge. Objective - Exam Narrative Exam: Physical exam deferred due to PPE conservation strategy. Please refer to primary team's note. - Constitutional Vitals: Vital Signs Temp Pulse Resp BP Pulse Ox 98.2 F 78 18 104/54 97 04/26/20 11:39 04/26/20 11:39 04/26/20 11:39 04/26/20 11:39 04/26/20 11:39 Temperature -Last 24 Hours Temperature 98.2 F Temperature 98.2 F Temperature 98.0 F Temperature 97.6 F Temperature 98.9 F - Labs CBC & Chem 7: 04/20/20 08:33 04/21/20 10:32
== END 2020-04-26 17:20 | disposition home or self-care (01) | DRG 871 ==
LOC: ED 22:19 → 3B-SURG 04-18 05:38 → OBSVTOIN 04-18 15:46 → UNDODISIN 04-19 14:20
PROVIDERS: ADMIT Surgery; ATTEND Internal Medicine
PROC: 0D9670Z Drainage of Stomach with Drainage Device, Via Natural or Artificial Opening (ICD-10-PCS; 2020-04-18)
PROC: 0K9P30Z Drainage of Left Hip Muscle with Drainage Device, Percutaneous Approach (ICD-10-PCS; principal; 2020-04-19)
DX: A41.9 Sepsis, unspecified organism (principal); K68.12 Psoas muscle abscess; K56.609 Unspecified intestinal obstruction, unspecified as to partial versus complete obstruction; M46.26 Osteomyelitis of vertebra, lumbar region; D64.9 Anemia, unspecified; D47.3 Essential (hemorrhagic) thrombocythemia; Z79.899 Other long term (current) drug therapy; Z79.891 Long term (current) use of opiate analgesic; Z79.01 Long term (current) use of anticoagulants; Z81.1 Family history of alcohol abuse and dependence; Z83.3 Family history of diabetes mellitus
CPT/HCPCS: 10160; 36415; 74018; 74022; 74177; 74248; 77012; 80048; 80053; 80061; 80202; 81001; 82140; 82962; 83036; 83690; 83735; 84100; 85025; 85027; 86850; 86900; 86901; 87040; 87102; 87116; 87806; 88112; 88312; 93306; 94640; 96365; 96367; 96375; 96376; G0378; C1769; J0692; J1200; J2250; J2270; J2405; J2543; J2765; J3010; J3370; J7030; J7050; Q0162; Q9963; Q9967

== ENCOUNTER 2020-05-11 10:04 | Outpatient (CLI) | payer OTHER ==
--- NOTE | 2020-05-11 12:11 | Vascular Lab Report ---
DUPLEX DOPPLER LOWER EXTREMITY VEINS, BILATERAL INDICATION: SWELLING OF LOWER EXTREMITY. TECHNIQUE: Duplex doppler imaging was performed through the veins of both lower extremities using ve nous compression and other maneuvers. COMPARISON: No relevant prior imaging study available. FINDINGS: Right Common femoral vein: Negative. Right Superficial femoral vein: Negative. Right Popliteal vein: Negative. Right Calf veins: Negative. Left Common femoral vein: Negative. Left Superficial femoral vein: Negative. Left Popliteal vein: Negative. Left Calf veins: Negative. Additional findings: None. IMPRESSION: No sonographic evidence for DVT in either lower extremity. Signer Name: Noel Augustin Jr, MD Signed: 05/11/2020 12:06 PM Workstation Name: [id number]
== END 2020-05-11 10:05 | disposition home or self-care (01) ==
LOC: US 10:04
PROVIDERS: ATTEND Internal Medicine Infectious Disease
DX: M79.89 Other specified soft tissue disorders (principal)
CPT/HCPCS: 93970